=== PATIENT | male | born 1960 | race Caucasian/White ===

== ENCOUNTER 2017-05-22 19:48 | Emergency (ER) | payer SELFPAY ==
[2017-05-22 20:47] LABS: ADD MAN DIFF? NO
[2017-05-22 20:55] LABS: BASO # 0.1 x10^3/uL (0.0-0.2); BASO % 1 % (0-3); EOS # 0.2 x10^3/uL (0.0-0.7); EOS % 2 % (0-3); HEMATOCRIT 46.9 % (39.0-53.0); HEMOGLOBIN 16.3 g/dL (13.0-17.5); LYMPH # 1.3 x10^3/uL (1.0-4.8); LYMPH % 12 % (24-48); MEAN CORPUSCULAR HEMOGLOBIN 30 pg (25-35); MEAN CORPUSCULAR HGB CONC 35 g/dL (31-37); MEAN CORPUSCULAR VOLUME 85 fL (79-100); MONO # 0.6 x10^3/uL (0.0-1.1); MONO % 5 % (0-9); NEUT # 8.5 x10^3uL (1.8-7.7); NEUT % 80 % (31-73); PLATELET COUNT 212 x10^3/uL (140-400); RED BLOOD COUNT 5.52 x10^6/uL (4.30-5.70); WHITE BLOOD COUNT 10.6 x10^3/uL (4.0-11.0)
[2017-05-22 21:00] LABS: ANION GAP 8 (6-14); BLOOD UREA NITROGEN 16 mg/dL (8-26); BUN/CREATININE RATIO 18 (6-20); CALCIUM 9.2 mg/dL (8.5-10.1); CARBON DIOXIDE 26 mmol/L (21-32); CHLORIDE 99 mmol/L (98-107); CREATININE 0.9 mg/dL (0.7-1.3); GLUCOSE 314 mg/dL (70-99); POTASSIUM 3.9 mmol/L (3.5-5.1); SODIUM 133 mmol/L (136-145)
[2017-05-22] MEDS: KETOROLAC 30 MG/ML INJ. IV (21:03)
[2017-05-22 21:06] LABS: ALBUMIN 3.9 g/dL (3.4-5.0); ALK PHOS 135 U/L (46-116); ALT (SGPT) 30 U/L (16-63); AST (SGOT) 15 U/L (15-37); LIPASE 206 U/L (73-393); TOTAL BILIRUBIN 0.4 mg/dL (0.2-1.0)
[2017-05-22 21:13] LABS: BILIRUBIN,URINE NEGATIVE (NEG); CLARITY,URINE CLOUDY; COLOR,URINE YELLOW; GLUCOSE,URINE >=1000 mg/dL (NEG); NITRITE,URINE NEGATIVE (NEG); PROTEIN,URINE NEGATIVE (NEG-TRACE); UROBILINOGEN,URINE 0.2 mg/dL (0.2 mg/dL)
[2017-05-22 21:23] LABS: BACTERIA,URINE 0 /HPF (0-FEW); RBC,URINE RARE /HPF (0-2); SQUAMOUS EPITHELIAL CELL,UR OCC /LPF; WBC,URINE RARE /HPF (0-4)
[2017-05-22] MEDS: HYDROcodone/APAP 5/325MG 1 TAB TABLET PO (22:29)
== END 2017-05-22 22:33 | disposition home or self-care (01) ==
LOC: ER 19:48
DX: S29.012A Strain of muscle and tendon of back wall of thorax, initial encounter (principal); R73.9 Hyperglycemia, unspecified; Z90.49 Acquired absence of other specified parts of digestive tract; Z93.3 Colostomy status; Z88.1 Allergy status to other antibiotic agents; Z91.041 Radiographic dye allergy status; X58.XXXA Exposure to other specified factors, initial encounter; Y93.89 Activity, other specified; Y92.89 Other specified places as the place of occurrence of the external cause; Y99.8 Other external cause status
CPT/HCPCS: 36415; 74176; 80053; 81001; 83690; 85025; 96374; 99285-25; J1885

== ENCOUNTER 2017-05-23 15:00 | Emergency (ER) | payer SELFPAY ==
[2017-05-23 16:01] LABS: ADD MAN DIFF? NO
[2017-05-23 16:03] LABS: BASO # 0.1 x10^3/uL (0.0-0.2); BASO % 1 % (0-3); EOS # 0.2 x10^3/uL (0.0-0.7); EOS % 2 % (0-3); HEMATOCRIT 44.2 % (39.0-53.0); HEMOGLOBIN 15.7 g/dL (13.0-17.5); LYMPH # 1.1 x10^3/uL (1.0-4.8); LYMPH % 12 % (24-48); MEAN CORPUSCULAR HEMOGLOBIN 30 pg (25-35); MEAN CORPUSCULAR HGB CONC 36 g/dL (31-37); MEAN CORPUSCULAR VOLUME 85 fL (79-100); MONO # 0.7 x10^3/uL (0.0-1.1); MONO % 8 % (0-9); NEUT # 6.6 x10^3uL (1.8-7.7); NEUT % 77 % (31-73); PLATELET COUNT 179 x10^3/uL (140-400); RED CELL DISTRIBUTION WIDTH 12.7 % (11.5-14.5); WHITE BLOOD COUNT 8.6 x10^3/uL (4.0-11.0)
[2017-05-23] MEDS: IV NORMAL SALINE 500ML BAG 500 ML IV (16:04)
[2017-05-23] MEDS: fentaNYL PF VIAL 100 MCG/2 ML VIAL IV ×2 (16:04→18:13)
[2017-05-23] MEDS: ONDANSETRON PF 4 MG/2 ML VIAL. IV (16:04)
[2017-05-23 16:12] LABS: ANION GAP 9 (6-14); BLOOD UREA NITROGEN 15 mg/dL (8-26); BUN/CREATININE RATIO 19 (6-20); CALCIUM 9.6 mg/dL (8.5-10.1); CARBON DIOXIDE 25 mmol/L (21-32); CHLORIDE 99 mmol/L (98-107); CREATININE 0.8 mg/dL (0.7-1.3); GFR 99.6; GLUCOSE 311 mg/dL (70-99); POTASSIUM 4.2 mmol/L (3.5-5.1); SODIUM 133 mmol/L (136-145)
[2017-05-23 16:18] LABS: D-DIMER 0.36 ug/mlFEU (0.00-0.50)
[2017-05-23 16:18] LABS: ALBUMIN 3.7 g/dL (3.4-5.0); ALBUMIN/GLOBULIN RATIO 0.9 (1.0-1.7); ALK PHOS 111 U/L (46-116); ALT (SGPT) 26 U/L (16-63); AST (SGOT) 16 U/L (15-37); LIPASE 81 U/L (73-393); TOTAL BILIRUBIN 0.8 mg/dL (0.2-1.0); TOTAL PROTEIN 7.8 g/dL (6.4-8.2)
[2017-05-23] MEDS ORDERED: fentaNYL PF VIAL 100 MCG/2 ML VIAL IV (18:45)
== END 2017-05-23 18:41 | disposition home or self-care (01) ==
LOC: ER 15:00
DX: K80.20 Calculus of gallbladder without cholecystitis without obstruction (principal); Z90.49 Acquired absence of other specified parts of digestive tract; Z93.3 Colostomy status; Z88.1 Allergy status to other antibiotic agents; Z91.041 Radiographic dye allergy status
CPT/HCPCS: 36415; 71045; 76705; 80053; 83690; 85025; 85379; 96361; 96374; 96375; 96376; 99285-25; J2405; J3010; J7040

== ENCOUNTER 2017-11-26 18:04 | Emergency (ER) | payer SELFPAY ==
[~2017-11-26] VITALS: Ht 162.6 cm; Wt 81.2 kg
[~2017-11-26 18:04] MED LIST: HYDR-971 PO
[2017-11-26 18:48] LABS: BASO # 0.1 x10^3/uL (0.0-0.2); BASO % 1 % (0-3); EOS # 0.2 x10^3/uL (0.0-0.7); EOS % 2 % (0-3); HEMOGLOBIN 15.1 g/dL (13.0-17.5); LYMPH # 1.7 x10^3/uL (1.0-4.8); LYMPH % 14 % (24-48); MEAN CORPUSCULAR HEMOGLOBIN 30 pg (25-35); MEAN CORPUSCULAR HGB CONC 35 g/dL (31-37); MEAN CORPUSCULAR VOLUME 85 fL (79-100); MONO % 9 % (0-9); NEUT # 8.7 x10^3uL (1.8-7.7); NEUT % 74 % (31-73); PLATELET COUNT 211 x10^3/uL (140-400); RED BLOOD COUNT 5.06 x10^6/uL (4.30-5.70); RED CELL DISTRIBUTION WIDTH 12.9 % (11.5-14.5); WHITE BLOOD COUNT 11.8 x10^3/uL (4.0-11.0)
[2017-11-26 18:50] LABS: BILIRUBIN,URINE NEGATIVE (NEG); CLARITY,URINE CLEAR; COLOR,URINE YELLOW; NITRITE,URINE NEGATIVE (NEG); PROTEIN,URINE NEGATIVE (NEG-TRACE)
[2017-11-26] MEDS: IV NORMAL SALINE 1000ML BAG 1,000 ML IV ONE (18:51)
[2017-11-26] MEDS: fentaNYL PF VIAL 100 MCG/2 ML VIAL IV ONE ×2 (18:52→20:43)
[2017-11-26 18:59] LABS: CALCIUM 9.3 mg/dL (8.5-10.1); CREATININE 0.8 mg/dL (0.7-1.3); GFR 99.3; POTASSIUM 3.9 mmol/L (3.5-5.1)
--- NOTE | 2017-11-26 19:00 | PHYS DOC ---
Past Medical History Past Medical History: Diverticulitis, Gallstones, Other Additional Past Medical Histor: HERNIA,BORDER LINE DIABETIC Past Surgical History: Appendectomy, Other Additional Past Surgical Histo: HX COLOSTOMY, ABD SX WITH INTESTINES REMOVED Alcohol Use: None Drug Use: None Adult General Chief Complaint Chief Complaint: FLANK PAIN HPI HPI Patient is a 57 year old male presenting with right upper quadrant pain and right mid back pain for the last 2 days it is worse after eating potato with sour cream. It comes and goes but it is worse when he tries to eat. It is not exertional it sometimes hurts worse when he takes a deep breath he had the identical pain back in May when he was diagnosed with gallstones from this emergency room and at that time he did have a negative d-dimer. No shortness breath no fever nausea no vomiting no diarrhea. Review of Systems Review of Systems Constitutional: Denies fever or chills [] Eyes: Denies change in visual acuity, redness, or eye pain [] HENT: Denies nasal congestion or sore throat [] Respiratory: Denies cough or shortness of breath [] Cardiovascular: No additional information not addressed in HPI [] GI: All other systems were reviewed and found to be within normal limits, except as documented in this note. Current Medications Current Medications Current Medications Medications (Trade) Dose Ordered Sig/Autumn Start Time Stop Time Status Last Admin Dose Admin Acetaminophen/ Hydrocodone Bitart (Lortab 5/325) 2 tab 1X ONCE 11/26/17 22:00 11/26/17 22:00 DC 11/26/17 21:52 2 TAB Fentanyl Citrate (Fentanyl 2ml Vial) 50 mcg 1X ONCE 11/26/17 20:30 11/26/17 20:31 DC 11/26/17 20:43 50 MCG Sodium Chloride 1,000 ml @ 1,000 mls/hr 1X ONCE 11/26/17 18:45 11/26/17 19:44 DC 11/26/17 18:51 1,000 MLS/HR Allergies Allergies Allergies Coded Allergies Type Severity Reaction Last Updated Verified levofloxacin Allergy Intermediate HIVES 05/22/17 Yes Iodine and Iodide Containing Produc Adverse Reaction Mild N/V 05/22/17 Yes Physical Exam Physical Exam Constitutional: Well developed, well nourished, no acute distress, non-toxic appearance. [] HENT: Normocephalic, atraumatic, bilateral external ears normal, oropharynx moist, no oral exudates, nose normal. [] Eyes: PERRLA, EOMI, conjunctiva normal, no discharge. [] Neck: Normal range of motion, no tenderness, supple, no stridor. [] Cardiovascular:Heart rate regular rhythm, no murmur [] Lungs & Thorax: Bilateral breath sounds clear to auscultation [] chest wall ttp noted right upper back Abdomen: Bowel sounds normal, soft, ruq with murphys tenderness, no masses, no pulsatile masses. [] Skin: Warm, dry, no erythema, no rash. [] Back: No tenderness, no CVA tenderness. [] Extremities: No tenderness, no cyanosis, no clubbing, ROM intact, no edema. [] Neurologic: Alert and oriented X 3, normal motor function, normal sensory function, no focal deficits noted. [] Psychologic: Affect normal, judgement normal, mood normal. [] Current Patient Data Vital Signs Vital Signs Date Time Temp Pulse Resp B/P (MAP) Pulse Ox O2 Delivery O2 Flow Rate FiO2 11/26/17 21:30 92 133/68 (89) 94 Room Air 11/26/17 18:17 97.8 20 97.8 Lab Values Laboratory Tests Test 11/26/17 18:30 11/26/17 18:32 Urine Collection Type Clean catch Urine Color Yellow Urine Clarity Clear Urine pH 6.0 Urine Specific [place] >=1.030 Urine Protein Negative mg/dL (NEG-TRACE) Urine Glucose (UA) >=1000 mg/dL (NEG) Urine Ketones (Stick) Trace mg/dL (NEG) Urine Blood Negative (NEG) Urine Nitrite Negative (NEG) Urine Bilirubin Negative (NEG) Urine Urobilinogen Dipstick 1.0 mg/dL (0.2 mg/dL) Urine Leukocyte Esterase Negative (NEG) Urine RBC 0 /HPF (0-2) Urine WBC 0 /HPF (0-4) Urine Bacteria 0 /HPF (0-FEW) White Blood Count 11.8 x10^3/uL (4.0-11.0) H Red Blood Count 5.06 x10^6/uL (4.30-5.70) Hemoglobin 15.1 g/dL (13.0-17.5) Hematocrit 43.0 % (39.0-53.0) Mean Corpuscular Volume 85 fL (79-100) Mean Corpuscular Hemoglobin 30 pg (25-35) Mean Corpuscular Hemoglobin Concent 35 g/dL (31-37) Red Cell Distribution Width 12.9 % (11.5-14.5) Platelet Count 211 x10^3/uL (140-400) Neutrophils (%) (Auto) 74 % (31-73) H Lymphocytes (%) (Auto) 14 % (24-48) L Monocytes (%) (Auto) 9 % (0-9) Eosinophils (%) (Auto) 2 % (0-3) Basophils (%) (Auto) 1 % (0-3) Neutrophils # (Auto) 8.7 x10^3uL (1.8-7.7) H Lymphocytes # (Auto) 1.7 x10^3/uL (1.0-4.8) Monocytes # (Auto) 1.0 x10^3/uL (0.0-1.1) Eosinophils # (Auto) 0.2 x10^3/uL (0.0-0.7) Basophils # (Auto) 0.1 x10^3/uL (0.0-0.2) Sodium Level 139 mmol/L (136-145) Potassium Level 3.9 mmol/L (3.5-5.1) Chloride Level 101 mmol/L (98-107) Carbon Dioxide Level 24 mmol/L (21-32) Anion Gap 14 (6-14) Blood Urea Nitrogen 12 mg/dL (8-26) Creatinine 0.8 mg/dL (0.7-1.3) Estimated GFR (Cockcroft-Gault) 99.3 BUN/Creatinine Ratio 15 (6-20) Glucose Level 243 mg/dL (70-99) H Calcium Level 9.3 mg/dL (8.5-10.1) Total Bilirubin 0.7 mg/dL (0.2-1.0) Aspartate Amino Transferase (AST) 10 U/L (15-37) L Alanine Aminotransferase (ALT) 20 U/L (16-63) Alkaline Phosphatase 113 U/L (46-116) Troponin I Quantitative < 0.017 ng/mL (0.000-0.055) Total Protein 8.1 g/dL (6.4-8.2) Albumin 3.7 g/dL (3.4-5.0) Albumin/Globulin Ratio 0.8 (1.0-1.7) L Lipase 81 U/L (73-393) Laboratory Tests 11/26/17 18:32 Laboratory Tests 11/26/17 18:32 EKG EKG [] Interpretation Time: EKG shows normal sinus rhythm with a rate of 91 QTc 442 no obvious acute ischemic changes noted interpreted by me the time of encounter. Radiology/Procedures Radiology/Procedures [] Impressions: pulmonary fibrosis no acute changes Course & Med Decision Making Course & Med Decision Making Pertinent Labs and Imaging studies reviewed. (See chart for details) []biliary v. less likely acs trop/ekg negative. already had negatvie ddimer in may with identical symptoms and this seems more a/w eating and no hypoxia, will defer unnecessary testing at this tiem. IMPRESSION: 1. Moderate hepatomegaly with hepatic steatosis. 2. Cholelithiasis without imaging evidence of acute cholecystitis. Clinically correlate. 3. Stable dilation of CBD measuring 7 mm. Electronically signed by: Tee Reilly DO (11/26/2017 9:14 PM) [facility] DICTATED and SIGNED BY: TEE REILLY DO DATE: 11/26/172109 Noted the above findings. I reevaluated the patient he no longer has right upper quadrant tenderness he says he feels better he does request the same medicines he got last time he had biliary colic Bentyl and [facility]. I did give him a prescription for these and advised follow-up with his surgeon in the next several days for reevaluation. We talked about return precautions to the emergency room including fever or vomiting or worsening pain he noted agreement. Dragon Disclaimer Dragon Disclaimer This electronic medical record was generated, in whole or in part, using a voice recognition dictation system. Departure Departure Impression: Primary Impression: Biliary colic Disposition: 01 HOME, SELF-CARE Condition: STABLE Referrals: NADINE SHARMA MD (PCP) Scripts Dicyclomine Hcl (DICYCLOMINE HCL) 20 Mg Tablet 1 TAB PO TID PRN for PAIN, #30 TAB 1 Refill Prov: SADIA GOMEZ MD 11/26/17 Hydrocodone/Apap 5-325 (NORCO 5-325 TABLET) 1 Each Tablet 1-2 EACH PO PRN Q6HRS PRN for PAIN, #15 as needed for pain Prov: SADIA GOMEZ MD 11/26/17 SADIA GOMEZ MD Nov 26, 2017 19:00
[2017-11-26 19:04] LABS: ALBUMIN 3.7 g/dL (3.4-5.0); ALBUMIN/GLOBULIN RATIO 0.8 (1.0-1.7); TOTAL BILIRUBIN 0.7 mg/dL (0.2-1.0); TOTAL PROTEIN 8.1 g/dL (6.4-8.2)
[2017-11-26 19:15] LABS: BACTERIA,URINE 0 /HPF (0-FEW); RBC,URINE 0 /HPF (0-2); WBC,URINE 0 /HPF (0-4)
--- NOTE | 2017-11-26 21:17 | RAD ---
Indication:RUQ PAIN, BACK PAIN, KNOWN GALLSTONES TECHNIQUE: Grayscale, color Doppler and spectral waveform is of the abdomen obtained. COMPARISON: Previous study from 05/23/2017 FINDINGS: Pancreas is not visualized due to overlying bowel gas. IVC not well visualized. Main portal vein is patent with hepatopedal flow. Hepatic veins are patent. The liver is mildly enlarged measuring 21 cm in longest dimension with diffusely increased echogenicity and decreased through transmission. CBD is dilated measuring 7 mm, previously 9 mm. The right kidney measures 14 cm in length and is mildly enlarged without hydronephrosis. Gallstones noted. No gallbladder wall thickening. No pericholecystic fluid. Hypoechoic areas adjacent to the gallbladder most likely is of focal fatty sparing. Positive sonographic Carreno's sign. IMPRESSION: 1. Moderate hepatomegaly with hepatic steatosis. 2. Cholelithiasis without imaging evidence of acute cholecystitis. Clinically correlate. 3. Stable dilation of CBD measuring 7 mm. Electronically signed by: Tee Connor DO (11/26/2017 9:14 PM) [facility]
[2017-11-26 21:30] VITALS: BP 133/68
[2017-11-26] MEDS ORDERED: DICY20TA3 PO (21:47)
[2017-11-26] MEDS ORDERED: HYDR-971 PO (21:47)
[2017-11-26] MEDS: HYDROcodone/APAP 5/325MG 1 TAB TABLET PO ONE (21:52)
--- NOTE | 2017-11-27 06:13 | EKG ---
[facility] [address] [place] [address] Test Date: 2017-11-26 Test Time: 19:02:37 Pat Name: GODFREY MCWILLIAMS Department: Room: Gender: M Automotive Light Mechanic: DANTE : 1960 Requested By: SADIA GOMEZ Order Number: [id number] Reading MD: Liu Mullins MD Measurements Intervals [place] Rate: 91 P: 47 [place]: 178 QRS: 14 QRSD: 96 T: 30 QT: 358 QTc: 442 Interpretive Statements SINUS RHYTHM Electronically Signed On 11-27-2017 12:25:37 CDT by Liu Mullins MD
--- NOTE | 2017-11-27 08:48 | RAD ---
Chest radiograph 11/26/2017 6:53 PM INDICATION: Right upper quadrant pain COMPARISON: May 23, 2017 TECHNIQUE: Portable upright frontal view of the chest is provided. FINDINGS: The cardiomediastinal silhouette is within normal limits. There are no pleural effusions. There is no pulmonary vascular congestion. There is no pneumothorax. Subpleural reticular interstitial changes are identified with stable nodular opacities in the right lower lobe. There may be more confluent interstitial airspace disease in the peripheral right lower lobe. No significant osseous abnormality is identified. IMPRESSION: More confluent interstitial changes are noted in the right lower lobe which may represent superimposed infiltrate on chronic interstitial lung disease. Electronically signed by: Eden Stokes MD (11/27/2017 8:44 AM) [id number]
== END 2017-11-26 21:53 | disposition home or self-care (01) ==
LOC: ER 18:04
DX: K80.70 Calculus of gallbladder and bile duct without cholecystitis without obstruction (principal); M54.6 Pain in thoracic spine; Z90.89 Acquired absence of other organs; Z93.3 Colostomy status; Z88.1 Allergy status to other antibiotic agents; Z91.041 Radiographic dye allergy status
CPT/HCPCS: 36415; 71045; 76705; 80053; 81001; 83690; 84484; 85025; 93005; 96374; 99285; J3010; J7030

== ENCOUNTER 2018-06-05 11:59 | Emergency (ER) | payer SELFPAY ==
[~2018-06-05] VITALS: Ht 177.8 cm; Wt 81.2 kg
[~2018-06-05 11:59] MED LIST changes: +DICY20TA3 PO; +HYDR-3164 PO; -HYDR-971 PO
[2018-06-05 12:58] LABS: BILIRUBIN,URINE NEGATIVE (NEG); CLARITY,URINE CLOUDY; COLOR,URINE YELLOW; NITRITE,URINE NEGATIVE (NEG); PH,URINE 6.5; PROTEIN,URINE NEGATIVE (NEG-TRACE); UROBILINOGEN,URINE 0.2 mg/dL (0.2 mg/dL)
[2018-06-05 13:13] LABS: BACTERIA,URINE 0 /HPF (0-FEW); RBC,URINE OCC /HPF (0-2); WBC,URINE OCC /HPF (0-4)
[2018-06-05] MEDS ORDERED: fentaNYL PF VIAL 100 MCG/2 ML VIAL IV ONE (13:30)
[2018-06-05] MEDS ORDERED: IV NORMAL SALINE 1000ML BAG 1,000 ML IV ONE (13:30)
[2018-06-05] MEDS ORDERED: LIDOCAINE (700MG/PATCH) PATCH. TD ONE (13:45)
--- NOTE | 2018-06-05 13:47 | RAD ---
CHEST PA LATERAL History: Right chest pain, mid back pain Comparison: November 26, 2017 Findings: 2 views of the chest are submitted. There is again coarse interstitial opacity greatest of the mid to inferior hemithoraces right greater than left, overall fairly similar compared with the November exam although somewhat more apparent at the lung bases comparing with the May 2017 exam. There is no pleural fluid or pneumothorax. Heart size is within normal limits. Impression: 1. There is again coarse interstitial opacity bilaterally right greater than left likely interstitial lung disease, findings somewhat greater at the lung bases compared with May 2017 exam. Electronically signed by: Joe Espinoza MD (06/05/2018 1:44 PM) [facility]
[2018-06-05 13:51] LABS: BASO # 0.1 x10^3/uL (0.0-0.2); BASO % 1 % (0-3); EOS # 0.2 x10^3/uL (0.0-0.7); EOS % 2 % (0-3); HEMATOCRIT 46.4 % (39.0-53.0); HEMOGLOBIN 15.9 g/dL (13.0-17.5); LYMPH # 1.2 x10^3/uL (1.0-4.8); LYMPH % 14 % (24-48); MEAN CORPUSCULAR HEMOGLOBIN 29 pg (25-35); MEAN CORPUSCULAR HGB CONC 34 g/dL (31-37); MEAN CORPUSCULAR VOLUME 85 fL (79-100); MONO # 0.3 x10^3/uL (0.0-1.1); MONO % 4 % (0-9); NEUT # 6.9 x10^3uL (1.8-7.7); NEUT % 79 % (31-73); PLATELET COUNT 232 x10^3/uL (140-400); RED BLOOD COUNT 5.46 x10^6/uL (4.30-5.70); WHITE BLOOD COUNT 8.7 x10^3/uL (4.0-11.0)
[2018-06-05 14:06] LABS: CALCIUM 9.7 mg/dL (8.5-10.1); CREATININE 0.9 mg/dL (0.7-1.3); GFR 86.7; POTASSIUM 4.3 mmol/L (3.5-5.1)
[2018-06-05 14:18] LABS: ALBUMIN 4.2 g/dL (3.4-5.0); MAGNESIUM 1.5 mg/dL (1.8-2.4); TOTAL BILIRUBIN 0.5 mg/dL (0.2-1.0); TOTAL PROTEIN 8.3 g/dL (6.4-8.2)
[2018-06-05] MEDS ORDERED: MORPHINE SULFATE 4 MG/ML VIAL. IV ONE (15:00)
--- NOTE | 2018-06-05 15:03 | PHYS DOC ---
Past Medical History Past Medical History: Diverticulitis, Gallstones, Other Additional Past Medical Histor: HERNIA,BORDER LINE DIABETIC Past Surgical History: Appendectomy, Other Additional Past Surgical Histo: HX COLOSTOMY, ABD SX WITH INTESTINES REMOVED Alcohol Use: None Drug Use: None Adult General Chief Complaint Chief Complaint: FLANK PAIN HPI HPI 57-year-old male presents to ER via POV for complaints of right mid back pain which radiates into right upper abdomen. Patient states pain started around 6 AM this morning and he has had past history of gallstone issues. He reports this does feel similar to previous attacks. Patient states he did go off his regular diet and had queso dip last night along with coffee this morning which he reports those types of food does cause gallstone exacerbations. Patient reports he has had intermittent nausea with dry heaves denies active vomiting or diarrhea. Patient states he took Tylenol this morning around 6 AM with no relief in symptoms. Patient states he had regular bowel movement this morning. Patient denies urinary symptoms. He denies any recent falls or injury. He reports he has had increased nonproductive cough over the past few days. Patient denies any chest pain or palpitations. He reports he does not feel short of air. Review of Systems Review of Systems Constitutional: Denies fever or chills [] Eyes: Denies change in visual acuity, redness, or eye pain [] HENT: Denies nasal congestion or sore throat [] Respiratory: Denies shortness of breath. Reports nonprod. cough Cardiovascular: Denies CP GI: Denies bloody stools or diarrhea. Reports rt lower abd pain with intermittent nausea and dry heaves : Denies dysuria or hematuria [] Musculoskeletal: Denies joint pain. Reports rt flank pain Integument: Denies rash or skin lesions [] Neurologic: Denies headache, focal weakness or sensory changes [] Endocrine: Denies polyuria or polydipsia [] All other systems were reviewed and found to be within normal limits, except as documented in this note. Current Medications Current Medications Current Medications Medications (Trade) Dose Ordered Sig/Autumn Start Time Stop Time Status Last Admin Dose Admin Fentanyl Citrate (Fentanyl 2ml Vial) 50 mcg 1X ONCE 06/05/18 13:30 06/05/18 13:31 DC 06/05/18 13:48 50 MCG Lidocaine (Lidoderm) 1 patch 1X ONCE 06/05/18 13:45 06/05/18 13:47 DC 06/05/18 13:56 1 PATCH Magnesium Oxide (Magnesium Oxide) 400 mg DAILY 06/06/18 09:00 06/06/18 09:00 DC Morphine Sulfate (Morphine Sulfate) 4 mg 1X ONCE 06/05/18 15:00 06/05/18 15:02 DC 06/05/18 15:47 4 MG Sodium Chloride 1,000 ml @ 1,000 mls/hr 1X ONCE 06/05/18 13:30 06/05/18 14:29 DC 06/05/18 13:49 1,000 MLS/HR Allergies Allergies Allergies Coded Allergies Type Severity Reaction Last Updated Verified levofloxacin Allergy Intermediate HIVES 06/09/18 Yes Iodine and Iodide Containing Produc Adverse Reaction Mild N/V 06/09/18 Yes Physical Exam Physical Exam Constitutional: Well developed, well nourished, no acute distress, non-toxic appearance. [] HENT: Normocephalic, atraumatic, bilateral external ears normal, oropharynx moist, no oral exudates, nose normal. [] Eyes: Pupils equal, conjunctiva normal, no discharge. [] Neck: Normal range of motion, no tenderness, supple, no stridor. [] Cardiovascular: Heart rate regular rhythm, no murmur [] Lungs & Thorax: Bilateral breath sounds clear to auscultation- resp. equal/ nonlabored Abdomen: Bowel sounds normal, soft, diffuse tenderness in rt lower abd into lateral side- no rebound tenderness, no masses, no pulsatile masses. [] Skin: Warm, dry, no erythema, no rash. [] Back: Diffuse tenderness in rt lower back with +CVA tenderness Extremities: No tenderness, no cyanosis, no clubbing, ROM intact, no edema. [] Neurologic: Alert and oriented X 3, normal motor function, normal sensory function, no focal deficits noted. [] Psychologic: Affect normal, judgement normal, mood normal. [] Current Patient Data Vital Signs Vital Signs Date Time Temp Pulse Resp B/P (MAP) Pulse Ox O2 Delivery O2 Flow Rate FiO2 06/05/18 16:50 68 149/56 (87) 98 Room Air 06/05/18 13:07 97.7 15 97.7 Lab Values Laboratory Tests Test 06/05/18 12:50 06/05/18 13:05 Urine Collection Type Unknown Urine Color Yellow Urine Clarity Cloudy Urine pH 6.5 Urine Specific [place] 1.025 Urine Protein Negative mg/dL (NEG-TRACE) Urine Glucose (UA) >=1000 mg/dL (NEG) Urine Ketones (Stick) Negative mg/dL (NEG) Urine Blood Negative (NEG) Urine Nitrite Negative (NEG) Urine Bilirubin Negative (NEG) Urine Urobilinogen Dipstick 0.2 mg/dL (0.2 mg/dL) Urine Leukocyte Esterase Negative (NEG) Urine RBC Occ /HPF (0-2) Urine WBC Occ /HPF (0-4) Urine Bacteria 0 /HPF (0-FEW) White Blood Count 8.7 x10^3/uL (4.0-11.0) Red Blood Count 5.46 x10^6/uL (4.30-5.70) Hemoglobin 15.9 g/dL (13.0-17.5) Hematocrit 46.4 % (39.0-53.0) Mean Corpuscular Volume 85 fL (79-100) Mean Corpuscular Hemoglobin 29 pg (25-35) Mean Corpuscular Hemoglobin Concent 34 g/dL (31-37) Red Cell Distribution Width 13.0 % (11.5-14.5) Platelet Count 232 x10^3/uL (140-400) Neutrophils (%) (Auto) 79 % (31-73) H Lymphocytes (%) (Auto) 14 % (24-48) L Monocytes (%) (Auto) 4 % (0-9) Eosinophils (%) (Auto) 2 % (0-3) Basophils (%) (Auto) 1 % (0-3) Neutrophils # (Auto) 6.9 x10^3uL (1.8-7.7) Lymphocytes # (Auto) 1.2 x10^3/uL (1.0-4.8) Monocytes # (Auto) 0.3 x10^3/uL (0.0-1.1) Eosinophils # (Auto) 0.2 x10^3/uL (0.0-0.7) Basophils # (Auto) 0.1 x10^3/uL (0.0-0.2) Sodium Level 136 mmol/L (136-145) Potassium Level 4.3 mmol/L (3.5-5.1) Chloride Level 98 mmol/L (98-107) Carbon Dioxide Level 26 mmol/L (21-32) Anion Gap 12 (6-14) Blood Urea Nitrogen 14 mg/dL (8-26) Creatinine 0.9 mg/dL (0.7-1.3) Estimated GFR (Cockcroft-Gault) 86.7 BUN/Creatinine Ratio 16 (6-20) Glucose Level 267 mg/dL (70-99) H Calcium Level 9.7 mg/dL (8.5-10.1) Magnesium Level 1.5 mg/dL (1.8-2.4) L Total Bilirubin 0.5 mg/dL (0.2-1.0) Aspartate Amino Transferase (AST) 19 U/L (15-37) Alanine Aminotransferase (ALT) 23 U/L (16-63) Alkaline Phosphatase 115 U/L (46-116) Troponin I Quantitative < 0.017 ng/mL (0.000-0.055) Total Protein 8.3 g/dL (6.4-8.2) H Albumin 4.2 g/dL (3.4-5.0) Albumin/Globulin Ratio 1.0 (1.0-1.7) Laboratory Tests 06/05/18 13:05 Laboratory Tests 06/05/18 13:05 EKG EKG EKG obtained 06/05/18 at [address] Archibald Sinus rhythm Rate 73 No STEMI Radiology/Procedures Radiology/Procedures PROCEDURE: LIMITED ABDOMINAL DOPPLER Limited abdomen ultrasound HISTORY: Right upper quadrant abdominal pain and back pain. FINDINGS: Pancreas, aorta and IVC not visualized due to bowel gas shadowing. Several gallstones are present with a dominant oval 2 cm gallstone with shadowing. No gallbladder wall thickening or surrounding edema is present although the patient does have a positive sonographic Carreno sign. Patent hepatopedal portal vein blood flow. Common bile duct diameter borderline enlarged measuring 7 mm proximal but tapers distally to a more normal diameter 5 mm. Increased liver echogenicity likely steatosis. No liver mass documented. Right renal length 11.6 cm, no right renal mass or hydronephrosis documented. Spleen and left kidney not evaluated. IMPRESSION: 1. Cholelithiasis. No inflammatory changes of the gallbladder are evident sonographically however the patient does have a positive sonographic Carreno sign which could indicate early findings of cholecystitis. 2. Borderline dilation of the common bile duct with a diameter 7 mm upper limits of normal. 3. Fatty liver. Electronically signed by: Malik Moraes MD (06/05/2018 4:07 PM) [facility] DICTATED and SIGNED BY: MALIK MORAES MD DATE: 06/05/18 6084 Course & Med Decision Making Course & Med Decision Making Pertinent Labs and Imaging studies reviewed. (See chart for details) 1500: On reevaluation patient reports he had minimal relief and back pain and has had radiation of pain into right upper abdomen. Patient reports his is similar to previous gallstone exacerbations. Will obtain ultrasound of upper abdomen and provide patient with additional dose of pain medicine. He remains nontoxic in appearance. He has had no vomiting episodes while in the ER. Lab results were discussed- WBCs NL at 8.7; UA neg. blood/leuks and LFTs NL. EKG obtained as pt had reported pain radiating into upper abd- no acute ST elevation/STEMI and troponin <0.017. Admission was offered for further care/monitoring with US showing cholelithiasis with no inflammatory changes- pt is not wanting to be admitted at this time reporting he has home issues which won't work out allowing admission. He reports he plans to call Dr. Hanley who has evaluated him in past for GB issues and schedule f/u appt for outpt tx. He requested Rx for Bentyl and [place] for more severe pain if Bentyl doesn't work. Pt has had no active vomiting while in the ER. He remains nontoxic in appearance. Pt verbalized understanding of benefits from admission however following discussion on his ongoing sxs and test results he is requesting home discharge. Education was provided on s&s to return to ER for which he stated if sxs worsen or with concerns he would return to ER for admit. Discharge instructions were discussed. Dragon Disclaimer Dragon Disclaimer This electronic medical record was generated, in whole or in part, using a voice recognition dictation system. Departure Departure Impression: Primary Impression: Biliary colic Additional Impressions: Abdominal pain Back pain Cough Disposition: 01 HOME, SELF-CARE Condition: STABLE Referrals: NADINE SHARMA MD (PCP) MATTI HANLEY MD Patient Instructions: Abdominal Pain, Back Pain, Adult, Biliary Colic, Cough, Adult Additional Instructions: As you chose to be discharged from the hospital instead of admitted for further care- you should call and get Appointment scheduled with Dr. Hanley for further care and evaluation. If symptoms worsen then return to the Emergency Department. As discussed the BRAT diet and drink plenty of water. If taking the [place] you can take stool softeners to avoid constipation. Scripts Dicyclomine Hcl (DICYCLOMINE HCL) 10 Mg Capsule 1 CAP PO PRN Q6HRS PRN for PAIN, #12 CAP 0 Refills Prov: PO HENLEY APRN 06/05/18 Problem Qualifiers PO HENLEY APRN Jun 05, 2018 15:03
--- NOTE | 2018-06-05 16:10 | RAD ---
Limited abdomen ultrasound HISTORY: Right upper quadrant abdominal pain and back pain. FINDINGS: Pancreas, aorta and IVC not visualized due to bowel gas shadowing. Several gallstones are present with a dominant oval 2 cm gallstone with shadowing. No gallbladder wall thickening or surrounding edema is present although the patient does have a positive sonographic Carreno sign. Patent hepatopedal portal vein blood flow. Common bile duct diameter borderline enlarged measuring 7 mm proximal but tapers distally to a more normal diameter 5 mm. Increased liver echogenicity likely steatosis. No liver mass documented. Right renal length 11.6 cm, no right renal mass or hydronephrosis documented. Spleen and left kidney not evaluated. IMPRESSION: 1. Cholelithiasis. No inflammatory changes of the gallbladder are evident sonographically however the patient does have a positive sonographic Carreno sign which could indicate early findings of cholecystitis. 2. Borderline dilation of the common bile duct with a diameter 7 mm upper limits of normal. 3. Fatty liver. Electronically signed by: Jimenez Walden MD (06/05/2018 4:07 PM) [facility]
[2018-06-05] MEDS ORDERED: DICY10CA3 PO (16:45)
[2018-06-05] MEDS ORDERED: HYDR-3164 PO (16:45)
[2018-06-05 16:50] VITALS: BP 149/56
[2018-06-06] MEDS ORDERED: LIDOCAINE (700MG/PATCH) PATCH. TD SCH (09:00)
[2018-06-06] MEDS ORDERED: MAGNESIUM OXIDE 400 MG TABLET PO SCH (09:00)
--- NOTE | 2018-06-07 08:08 | EKG ---
[facility] [address] [place] [address] Test Date: 2018-06-05 Test Time: 13:01:35 Pat Name: GODFREY MCWILLIAMS Department: Room: Gender: M Field Service Rep: : 1960 Requested By: PO HENLEY Order Number: [id number] Reading MD: Liu Mullins MD Measurements Intervals [place] Rate: 73 P: 66 [place]: 186 QRS: 32 QRSD: 98 T: 44 QT: 392 QTc: 435 Interpretive Statements SINUS RHYTHM Electronically Signed On 06-07-2018 10:17:02 CDT by Liu Mullins MD
--- NOTE | 2018-06-07 09:43 | RAD ---
Limited abdomen ultrasound HISTORY: Right upper quadrant abdominal pain and back pain. FINDINGS: Pancreas, aorta and IVC not visualized due to bowel gas shadowing. Several gallstones are present with a dominant oval 2 cm gallstone with shadowing. No gallbladder wall thickening or surrounding edema is present although the patient does have a positive sonographic Carreno sign. Patent hepatopedal portal vein blood flow. Common bile duct diameter borderline enlarged measuring 7 mm proximal but tapers distally to a more normal diameter 5 mm. Increased liver echogenicity likely steatosis. No liver mass documented. Right renal length 11.6 cm, no right renal mass or hydronephrosis documented. Spleen and left kidney not evaluated. IMPRESSION: 1. Cholelithiasis. No inflammatory changes of the gallbladder are evident sonographically however the patient does have a positive sonographic Carreno sign which could indicate early findings of cholecystitis. 2. Borderline dilation of the common bile duct with a diameter 7 mm upper limits of normal. 3. Fatty liver. Electronically signed by: Jimenez Moraes MD (06/05/2018 4:07 PM) [facility] DICTATED and SIGNED BY: JIMENEZ MORAES MD DATE: 06/05/18 1607 MTDD
[2018-06-09] MEDS ORDERED: ACET325T9 PO (03:41)
[2018-06-09] MEDS ORDERED: OMEP20TA63 PO (03:41)
[2018-06-09] MEDS ORDERED: LACT1CAP2 PO (03:41)
[2018-06-09] MEDS ORDERED: DIPH25CA58 PO (03:41)
[2018-06-11] MEDS ORDERED: HYDR-3164 PO (11:52)
[2018-06-11] MEDS ORDERED: DOCU-109 PO (11:53)
== END 2018-06-05 17:07 | disposition home or self-care (01) ==
LOC: ER 11:59
DX: K80.70 Calculus of gallbladder and bile duct without cholecystitis without obstruction (principal); M54.6 Pain in thoracic spine; R05 Cough; K76.0 Fatty (change of) liver, not elsewhere classified; R10.11 Right upper quadrant pain; Z90.89 Acquired absence of other organs; Z93.3 Colostomy status; Z88.1 Allergy status to other antibiotic agents; Z91.041 Radiographic dye allergy status
CPT/HCPCS: 36415; 71046; 76705; 80053; 81001; 83735; 84484; 85025; 93005; 96374; 96375; 99284; J2270; J3010; J7030; 93976

== ENCOUNTER 2019-11-22 16:51 | Emergency (ER) | payer SELFPAY ==
[~2019-11-22] VITALS: Ht 162.6 cm; Wt 75.0 kg
[~2019-11-22 16:51] MED LIST changes: +ACET325T9 PO; +DICY10CA3 PO; +DIPH25CA58 PO; +DOCU-109 PO; +LACT1CAP2 PO; +OMEP20TA63 PO
[2019-11-22] MEDS ORDERED: IV NORMAL SALINE 1000ML BAG 1,000 ML IV ONE (17:45)
--- NOTE | 2019-11-22 17:56 | RAD ---
PORTABLE CHEST 1V Clinical indications: Shortness of air COMPARISON: June 05, 2018. Findings: Chronic interstitial lung disease is seen consistent with pulmonary fibrosis. No new lung infiltrate or pleural effusion or pulmonary edema or lung mass or pneumothorax is seen. The heart size, pulmonary vasculature, mediastinum and both fernando are stable. Impression: Pulmonary fibrosis. No acute radiographic abnormality is seen. Electronically signed by: Grzegorz Coyle MD (11/22/2019 5:53 PM) [id number]
[2019-11-22 18:08] LABS: ALBUMIN/GLOBULIN RATIO 0.9 (1.0-1.7); CALCIUM 9.7 mg/dL (8.5-10.1); CREATININE 0.8 mg/dL (0.7-1.3); GFR 98.6; HEMATOCRIT 48.1 % (39.0-53.0); HEMOGLOBIN 16.6 g/dL (13.0-17.5); MEAN CORPUSCULAR HEMOGLOBIN 30 pg (25-35); MEAN CORPUSCULAR VOLUME 87 fL (79-100); RED BLOOD COUNT 5.55 x10^6/uL (4.30-5.70); TOTAL BILIRUBIN 0.4 mg/dL (0.2-1.0); TOTAL PROTEIN 8.4 g/dL (6.4-8.2); WHITE BLOOD COUNT 8.5 x10^3/uL (4.0-11.0)
[2019-11-22 18:09] LABS: BASO % 1 % (0-3); EOS % 4 % (0-3); MEAN CORPUSCULAR HGB CONC 35 g/dL (31-37); MONO % 8 % (0-9); NEUT % 65 % (31-73); PLATELET COUNT 283 x10^3/uL (140-400); POTASSIUM 4.1 mmol/L (3.5-5.1); RED CELL DISTRIBUTION WIDTH 12.8 % (11.5-14.5)
[2019-11-22 18:10] LABS: BASO # 0.1 x10^3/uL (0.0-0.2); EOS # 0.4 x10^3/uL (0.0-0.7); LYMPH # 1.9 x10^3/uL (1.0-4.8); LYMPH % 22 % (24-48); MONO # 0.7 x10^3/uL (0.0-1.1); NEUT # 5.5 x10^3/uL (1.8-7.7)
[2019-11-22] MEDS ORDERED: FAMOTIDINE 20 MG/2 ML VIAL IVP ONE (18:15)
[2019-11-22] MEDS ORDERED: METOCLOPRAMIDE HCL 10 MG/2 ML VIAL. IVP ONE (18:15)
[2019-11-22 18:25] LABS: BILIRUBIN,URINE NEGATIVE (NEG); CLARITY,URINE CLEAR; COLOR,URINE YELLOW; NITRITE,URINE NEGATIVE (NEG); PROTEIN,URINE NEGATIVE (NEG-TRACE); UROBILINOGEN,URINE 0.2 mg/dL (0.2 mg/dL)
--- NOTE | 2019-11-22 18:33 | PHYS DOC ---
Past Medical History Past Medical History: Diverticulitis, Gallstones, Other Additional Past Medical Histor: HERNIA,BORDER LINE DIABETIC Past Surgical History: Appendectomy, Other Additional Past Surgical Histo: HX COLOSTOMY, ABD SX WITH INTESTINES REMOVED Smoking Status: Former Smoker Alcohol Use: None Drug Use: None General Adult EDM: Chief Complaint: ABDOMINAL PAIN HPI: HPI: Patient is a 59 year old male who presents with 5 days of epigastric sensation of fullness, shortness of air and productive cough with white phlem. States that shortness of air gets worse when he is up and moving. He states he vomited once this morning. He states that after he vomited to get his stomach to settle he ate some crackers and some 7-Up was fine. He states that this fullness sensation gets better with belching. He does take Prilosec daily. He is a pre vious smoker for 40+ years but stopped in 2010. He denies fever, dizziness, abdominal pain, diarrhea, chest pain, numbness or tingling, headache, vision changes, focal weakness, syncope. Patient has a history of GERD, abdominal hernias, abdominal surgery with a resection because of diverticulitis, borderline diabetes. Review of Systems: Review of Systems: Constitutional: Denies fever or chills. [] Eyes: Denies change in visual acuity. [] HENT: Denies nasal congestion or sore throat. [] Respiratory: Denies cough or shortness of breath. [] Cardiovascular: Denies chest pain or edema. [] GI: Denies abdominal pain, nausea, vomiting, bloody stools or diarrhea. [] : Denies dysuria. [] Musculoskeletal: Denies back pain or joint pain. [] Integument: Denies rash. [] Neurologic: Denies headache, focal weakness or sensory changes. [] Endocrine: Denies polyuria or polydipsia. [] Lymphatic: Denies swollen glands. [] Psychiatric: Denies depression or anxiety. [] Heart Score: HEART Score for Chest Pain: HEART Score for Chest Pain Response (Comments) Value History Slighlty/Non-Suspicious 0 ECG Normal 0 Age >45 - < 65 1 Risk Factors 1 or 2 Risk Factors 1 Troponin < Normal Limit 0 Total 2 Risk Factors: Risk Factors: DM, Current or recent (<one month) smoker, HTN, HLP, family history of CAD, obesity. Risk Scores: Score 0 - 3: 2.5% MACE over next 6 weeks - Discharge Home Score 4 - 6: 20.3% MACE over next 6 weeks - Admit for Clinical Observation Score 7 - 10: 72.7% MACE over next 6 weeks - Early Invasive Strategies Current Medications: Current Medications Medications (Trade) Dose Ordered Sig/Autumn Start Time Stop Time Status Last Admin Dose Admin Famotidine (Pepcid Vial) 20 mg 1X ONCE 11/22/19 18:15 11/22/19 18:16 DC 11/22/19 17:55 20 MG Metoclopramide HCl (Reglan Vial) 10 mg 1X ONCE 11/22/19 18:15 11/22/19 18:16 DC 11/22/19 17:55 10 MG Sodium Chloride 1,000 ml @ 1,000 mls/hr 1X ONCE 11/22/19 17:45 11/22/19 18:44 11/22/19 17:43 1,000 MLS/HR Allergies: Allergies: Allergies Coded Allergies Type Severity Reaction Last Updated Verified levofloxacin Allergy Intermediate HIVES 06/09/18 Yes Iodine and Iodide Containing Produc Adverse Reaction Mild N/V 06/09/18 Yes Physical Exam: PE: Constitutional: Well developed, well nourished, no acute distress, non-toxic appearance. [] HENT: Normocephalic, atraumatic, bilateral external ears normal, oropharynx moist, no oral exudates, nose normal. [] Eyes: PERRLA, EOMI, conjunctiva normal, no discharge. [] Neck: Normal range of motion, no tenderness, supple, no stridor. [] Cardiovascular:Heart rate regular rhythm, no murmur [] Lungs & Thorax: Bilateral breath sounds clear to auscultation [] Abdomen: Bowel sounds normal, soft, no tenderness, no masses, no pulsatile mas ses. [] Skin: Warm, dry, no erythema, no rash. [] Back: No tenderness, no CVA tenderness. [] Extremities: No tenderness, no cyanosis, no clubbing, ROM intact, no edema. [] Neurologic: Alert and oriented X 3, normal motor function, normal sensory function, no focal deficits noted. [] Psychologic: Affect normal, judgement normal, mood normal. [] Current Patient Data: Labs: Laboratory Tests Test 9/8/20 17:30 White Blood Count 8.5 x10^3/uL (4.0-11.0) Red Blood Count 5.55 x10^6/uL (4.30-5.70) Hemoglobin 16.6 g/dL (13.0-17.5) Hematocrit 48.1 % (39.0-53.0) Mean Corpuscular Volume 87 fL (79-100) Mean Corpuscular Hemoglobin 30 pg (25-35) Mean Corpuscular Hemoglobin Concent 35 g/dL (31-37) Red Cell Distribution Width 12.8 % (11.5-14.5) Platelet Count 283 x10^3/uL (140-400) Neutrophils (%) (Auto) 65 % (31-73) Lymphocytes (%) (Auto) 22 % (24-48) L Monocytes (%) (Auto) 8 % (0-9) Eosinophils (%) (Auto) 4 % (0-3) H Basophils (%) (Auto) 1 % (0-3) Neutrophils # (Auto) 5.5 x10^3/uL (1.8-7.7) Lymphocytes # (Auto) 1.9 x10^3/uL (1.0-4.8) Monocytes # (Auto) 0.7 x10^3/uL (0.0-1.1) Eosinophils # (Auto) 0.4 x10^3/uL (0.0-0.7) Basophils # (Auto) 0.1 x10^3/uL (0.0-0.2) Sodium Level 137 mmol/L (136-145) Potassium Level 4.1 mmol/L (3.5-5.1) Chloride Level 100 mmol/L (98-107) Carbon Dioxide Level 26 mmol/L (21-32) Anion Gap 11 (6-14) Blood Urea Nitrogen 16 mg/dL (8-26) Creatinine 0.8 mg/dL (0.7-1.3) Estimated GFR (Cockcroft-Gault) 98.6 BUN/Creatinine Ratio 20 (6-20) Glucose Level 193 mg/dL (70-99) H Calcium Level 9.7 mg/dL (8.5-10.1) Total Bilirubin 0.4 mg/dL (0.2-1.0) Aspartate Amino Transferase (AST) 15 U/L (15-37) Alanine Aminotransferase (ALT) 20 U/L (16-63) Alkaline Phosphatase 112 U/L (46-116) Troponin I Quantitative 0.021 ng/mL (0.000-0.055) Total Protein 8.4 g/dL (6.4-8.2) H Albumin 4.0 g/dL (3.4-5.0) Albumin/Globulin Ratio 0.9 (1.0-1.7) L Lipase 51 U/L (73-393) L Laboratory Tests 11/22/19 17:30 Laboratory Tests 11/22/19 17:30 Vital Signs: Vital Signs Date Time Temp Pulse Resp B/P (MAP) Pulse Ox O2 Delivery O2 Flow Rate FiO2 11/22/19 17:20 98.0 97 20 168/89 (115) 98 Room Air 98.0 EKG: EK and read by Dr. Lopez as sinus rhythm and no STEMI. [] Radiology/Procedures: Radiology/Procedures: [] Impression: [place] [id number] IMAGING REPORT Signed [facility] [id number] : 1960 LOCATION: ER AGE: 59 SEX: M EXAM STATUS: PRE ER ORD. PHYSICIAN: PAM BORREGO APRN REASON: soa PROCEDURE: PORTABLE CHEST 1V PORTABLE CHEST 1V Clinical indications: Shortness of air COMPARISON: June 05, 2018. Findings: Chronic interstitial lung disease is seen consistent with pulmonary fibrosis. No new lung infiltrate or pleural effusion or pulmonary edema or lung mass or pneumothorax is seen. The heart size, pulmonary vasculature, mediastinum and both fernando are stable. Impression: Pulmonary fibrosis. No acute radiographic abnormality is seen. Electronically signed by: Silke oCyle MD (11/22/2019 5:53 PM) [id number] DICTATED and SIGNED BY: SILKE COYLE MD DATE: 11/22/[address] [address] IMAGING REPORT Signed [facility] [id number] : 1960 LOCATION: ER AGE: 59 SEX: M EXAM STATUS: REG ER ORD. PHYSICIAN: PAM BORREGO APRN REASON: abdominal pain, vomiting PROCEDURE: CT ABDOMEN PELVIS WO CONTRAST Exam: CT of abdomen and pelvis without contrast INDICATION: Abdominal pain, vomiting TECHNIQUE: Sequential axial images through the abdomen and pelvis obtained without IV contrast. Sagittal and coronal reformatted images were reconstructed from the axial data and reviewed. Comparisons: 05/22/2017 FINDINGS: Heart size is normal. No pericardial effusion. Bilobed nodule in the left lower lobe measuring 2.3 x 4.0 cm. No pleural effusion. Evaluation of the solid organs is limited secondary to noncontrast technique. Liver, spleen, and anchor are unremarkable. Gallbladder is surgically absent. Mild thickening of the left adrenal gland is noted. No perinephric inflammation or hydronephrosis. Several hypoattenuating lesions are noted in the kidneys bilaterally incompletely characterized on this exam. Bladder is decompressed not well evaluated. Prostate is not enlarged. Postsurgical changes at the sigmoid colon and transverse colon are noted. Remainder of the large and small bowel are unremarkable. No free abdominal air or fluid. No obstruction. Abdominal aorta has a normal course and caliber. No enlarged intra-abdominal lymph nodes are identified. Small fat-containing ventral hernias are noted. No suspicious osseous lesions or acute fractures. IMPRESSION: 1. No acute process identified within the abdomen or pelvis. 2. Bilobed lung nodule at the left lower lobe measuring 2.3 x 4.0 cm. This is new compared to the study in 2018 and highly concerning for malignancy. 3. Several hypoattenuating lesions in the kidneys bilaterally completely characterized on noncontrast exam. Further evaluation with nonemergent/outpatient renal protocol MRI is recommended. 4. Mild thickening of the left adrenal gland which is nonspecific. Exposure: One or more of the following in the visualized dose reduction techniques were utilized for this examination: 1. Automated exposure control 2. Adjustment of the MA and/or KV according to patient size 3. Use of iterative of reconstructive technique Electronically signed by: Ozzie Liu MD (11/22/2019 6:42 PM) [id number] DICTATED and SIGNED BY: OZZIE LIU MD DATE: 11/22/19 184 [facility] [address] [place] [address] IMAGING REPORT Signed PATIENT: GODFREY MCWILLIAMS: [id number] : 1960 LOCATION: ER AGE: 59 SEX: M EXAM STATUS: REG ER ORD. PHYSICIAN: PAM BORREGO APRN REASON: SHORTNESS OF AIR, CHAUNCEY KNOWS PROCEDURE: PULMONARY PERFUSION IMG PARTIC Examination: PULMONARY PERFUSION IMG PARTIC History: Reason: SHORTNESS OF AIR, CHAUNCEY KNOWS / Spl. Instructions: / History: Comparison/Correlation: 11/22/2019 Portable Chest X-ray Exam Findings: 5.5 mCi technetium 99m MAA was intravenously administered for purposes of pulmonary perfusion scintigraphy. Imaging in 8 projections was performed. Multiple small subsegmental perfusion defects are present in particular at the left lung apex. No definite segmental perfusion defect. Impression: Findings are most compatible with low probability for PE. Findings likely relate to underlying interstitial lung disease and pulmonary fibrotic findings seen on prior chest x-ray and most recent exam as well. Evaluation may be limited without ventilation imaging. Electronically signed by: Isreal Moreno MD (11/22/2019 9:38 PM) [facility] DICTATED and SIGNED BY: ISREAL MORNEO MD DATE: 11/22/192137 Course & Med Decision Making: Course & Med Decision Making Pertinent Labs and Imaging studies reviewed. (See chart for details) COVID-19 CRITERIA: The patient was evaluated during the global COVID-19 pandemic, and that diagnosis was suspected/considered upon their initial presentation. Their evaluation, treatment and testing was consistent with current guidelines for patients who present with complaints or symptoms that may be related to COVID-19. See HPI. No extremity swelling. Abdomen soft and nontender. Skin pink warm and dry. Alert and oriented x4. Ambulatory to steady gait. Speaks in full complete sentences. Lungs are clear in upper lobes with diminished in lower lobes. Blood work shows no acute findings. Chest x-ray shows: Impression: Pulmonary fibrosis. No acute radiographic abnormality is seen. CT shows: IMPRESSION: 1. No acute process identified within the abdomen or pelvis. 2. Bilobed lung nodule at the left lower lobe measuring 2.3 x 4.0 cm. This is new compared to the study in 2018 and highly concerning for malignancy. 3. Several hypoattenuating lesions in the kidneys bilaterally completely characterized on noncontrast exam. Further evaluation with nonemergent/outpatient renal protocol MRI is recommended. 4. Mild thickening of the left adrenal gland which is nonspecific. Dr Amezquita has spoken to the patient. Patient does not want to stay in the hospital. Patient to follow-up with pulmonary as soon as possible. [] Dragon Disclaimer: Dragon Disclaimer: This electronic medical record was generated, in whole or in part, using a voice recognition dictation system. COVID-19 Patient Risks: Age 65 or older: No Sign of co-morbidity: Yes Exp to person + for COVID: No Exp to PUI: No Travel from affected area: No Lower respiratory symptoms: Yes Fever: No Other: No PPE Use: Full PPE with N95 mask or PAPR: Yes Departure Departure Impression: Primary Impression: Cough Additional Impressions: Shortness of breath Abnormal CT scan Disposition: 01 HOME, SELF-CARE Condition: STABLE Referrals: NADINE SHARMA MD (PCP) ANNETTE MARCANO MD Patient Instructions: Incidental Abnormal Radiological Finding Additional Instructions: Follow-up with pulmonary as soon as possible. Drink plenty of fluids. Scripts Albuterol Sulfate (Proair Hfa) 8.5 Gm Hfa.aer.ad 1 PUFF INH PRN Q6HRS PRN for SHORTNESS OF BREATH, #1 INHALER Prov: PAM BORREGO APRN 11/22/19 Methylprednisolone (MEDROL) 4 Mg Tab.ds.pk 1 PKG PO UD, #1 PKG Prov: PAM BORREGO APRN 11/22/19 Justicifation of Admission Dx: Justifications for Admission: Justification of Admission Dx: N/A PAM BORREGO APRN Nov 22, 2019 18:32
[2019-11-22 18:44] LABS: BACTERIA,URINE FEW /HPF (0-FEW); SQUAMOUS EPITHELIAL CELL,UR OCC /LPF
--- NOTE | 2019-11-22 18:45 | RAD ---
Exam: CT of abdomen and pelvis without contrast INDICATION: Abdominal pain, vomiting TECHNIQUE: Sequential axial images through the abdomen and pelvis obtained without IV contrast. Sagittal and coronal reformatted images were reconstructed from the axial data and reviewed. Comparisons: 05/22/2017 FINDINGS: Heart size is normal. No pericardial effusion. Bilobed nodule in the left lower lobe measuring 2.3 x 4.0 cm. No pleural effusion. Evaluation of the solid organs is limited secondary to noncontrast technique. Liver, spleen, and anchor are unremarkable. Gallbladder is surgically absent. Mild thickening of the left adrenal gland is noted. No perinephric inflammation or hydronephrosis. Several hypoattenuating lesions are noted in the kidneys bilaterally incompletely characterized on this exam. Bladder is decompressed not well evaluated. Prostate is not enlarged. Postsurgical changes at the sigmoid colon and transverse colon are noted. Remainder of the large and small bowel are unremarkable. No free abdominal air or fluid. No obstruction. Abdominal aorta has a normal course and caliber. No enlarged intra-abdominal lymph nodes are identified. Small fat-containing ventral hernias are noted. No suspicious osseous lesions or acute fractures. IMPRESSION: 1. No acute process identified within the abdomen or pelvis. 2. Bilobed lung nodule at the left lower lobe measuring 2.3 x 4.0 cm. This is new compared to the study in 2018 and highly concerning for malignancy. 3. Several hypoattenuating lesions in the kidneys bilaterally completely characterized on noncontrast exam. Further evaluation with nonemergent/outpatient renal protocol MRI is recommended. 4. Mild thickening of the left adrenal gland which is nonspecific. Exposure: One or more of the following in the visualized dose reduction techniques were utilized for this examination: 1. Automated exposure control 2. Adjustment of the MA and/or KV according to patient size 3. Use of iterative of reconstructive technique Electronically signed by: Ozzie Hernandez MD (11/22/2019 6:42 PM) [id number]
[2019-11-22 19:21] LABS: PROTHROMBIN TIME PATIENT 13.3 SEC (11.7-14.0)
[2019-11-22] MEDS ORDERED: METH4TAB2 PO (19:56)
[2019-11-22] MEDS ORDERED: ALBU2.5V8 INH (19:56)
--- NOTE | 2019-11-22 21:41 | RAD ---
Examination: PULMONARY PERFUSION IMG PARTIC History: Reason: SHORTNESS OF AIR, CHAUNCEY KNOWS / Spl. Instructions: / History: Comparison/Correlation: 11/22/2019 Portable Chest X-ray Exam Findings: 5.5 mCi technetium 99m MAA was intravenously administered for purposes of pulmonary perfusion scintigraphy. Imaging in 8 projections was performed. Multiple small subsegmental perfusion defects are present in particular at the left lung apex. No definite segmental perfusion defect. Impression: Findings are most compatible with low probability for PE. Findings likely relate to underlying interstitial lung disease and pulmonary fibrotic findings seen on prior chest x-ray and most recent exam as well. Evaluation may be limited without ventilation imaging. Electronically signed by: Isreal Menchaca MD (11/22/2019 9:38 PM) [id number]
[2019-11-22 21:52] VITALS: BP 166/85
--- NOTE | 2019-11-23 04:09 | EKG ---
[facility] [address] [place] [address] Test Date: 2019-11-22 Test Time: 17:23:58 Pat Name: GODFREY MCWILLIAMS Department: Room: Gender: M [employer] Vegetable: : 1960 Requested By: PAM BORREGO Order Number: [id number] Reading MD: Measurements Intervals [place] Rate: 92 P: 39 MI: 174 QRS: 24 QRSD: 98 T: 28 QT: 352 QTc: 440 Interpretive Statements SINUS RHYTHM NORMAL ECG RI6.02 No previous ECG available for comparison
--- NOTE | 2019-11-24 10:44 | NUR ---
IP: Informed pt of negative COVID results. Pt verbalized understanding.
== END 2019-11-22 22:06 | disposition home or self-care (01) ==
LOC: ER 16:51
DX: R05 Cough (principal); R06.02 Shortness of breath; Z20.828 Contact with and (suspected) exposure to other viral communicable diseases; R10.13 Epigastric pain; R11.2 Nausea with vomiting, unspecified; R94.8 Abnormal results of function studies of other organs and systems; Z87.442 Personal history of urinary calculi; Z90.89 Acquired absence of other organs; Z98.890 Other specified postprocedural states; Z87.891 Personal history of nicotine dependence; Z88.1 Allergy status to other antibiotic agents; Z91.041 Radiographic dye allergy status
CPT/HCPCS: 36415; 71045; 74176; 78580; 80053; 81001; 83690; 84484; 85025; 85610; 87070; 87880; 93005; 96361; 96374; 96375; 99285; A9540; J2765; J3490; J7030; U0003

== ENCOUNTER → 2019-12-05 | Outpatient (CLI) | payer SELFPAY ==
[2019-11-22 21:52] VITALS: BP 166/85
[~2019-12-05] MED LIST changes: +ALBU2.5V8 INH; +METH4TAB2 PO
--- NOTE | 2019-12-05 13:14 | RAD ---
Noncontrast CT scan of the chest compared to chest x-ray dated every 2023 lung mass. TECHNIQUE: Contiguous axial CT images are obtained through the chest. Sagittal and coronal reformations are evaluated. FINDINGS: Extensive changes of COPD the apices, with extensive bibasilar honeycombing consistent with UIP. There is a densely calcified granuloma in the left lower lobe. There is an irregular spiculated ovoid mass in the left lower lung seen best on series 2 axial image #46 which measures 4.2 x 2.3 cm x 2.0 transversely, AP, and craniocaudally. This is highly suspicious for primary neoplasm. In the medial right lower lung there is a smoothly marginated 8 mm noncalcified nodule which is indeterminate. This is seen on series 2 axial image #30. There are changes of antecedent granulomatous disease with densely calcified subcarinal and left hilar adenopathy. There is 1.7 cm pretracheal lymph node on series 2 axial image #21 which is noncalcified. There is a hypodense abnormality in the subcarinal region adjacent to the calcified adenopathy which measures 1.7 cm as well, and may reflect a noncalcified necrotic lymph node. Heart size within normal limits. Extensive coronary artery calcification in multiple distributions. Prior cholecystectomy. Benign granulomas in the liver and spleen. 2 small masses involving the left adrenal glands have appearance characteristic of benign adrenal adenomas. Right adrenal gland is normal. No suspicious osteoblastic or osteolytic bone lesions. IMPRESSION: 1. 4.2 cm left lower lobe mass highly suspicious for primary lung neoplasm on a background of extensive emphysema and UIP. 2. Suspicious adenopathy in the pretracheal region and subcarinal region concerning for metastasis. Evaluation subcarinal adenopathy is somewhat difficult due to associated bulky calcified adenopathy from antecedent granulomatous disease. 3. 8 mm indeterminate nodule in the right medial lung base. 3. Other chronic changes as described. PQRS Compliance Statement: One or more of the following individualized dose reduction techniques were utilized for this examination: 1. Automated exposure control 2. Adjustment of the mA and/or kV according to patient size 3. Use of iterative reconstruction technique Electronically signed by: Ronald Bang MD (12/05/2019 1:11 PM) [id number]
== END | disposition home or self-care (01) ==
LOC: CT 10:52
PROVIDERS: ATTEND Internal Medicine Critical Care Medicine
DX: J44.9 Chronic obstructive pulmonary disease, unspecified (principal); J84.10 Pulmonary fibrosis, unspecified; R91.1 Solitary pulmonary nodule
CPT/HCPCS: 71250

== ENCOUNTER 2020-01-24 08:32 | Outpatient (CLI) | payer SELFPAY ==
[2020-01-24] VITALS (14 sets, daily range): BP systolic 112–157; BP diastolic 67–89
[~2020-01-24] VITALS: Ht 162.6 cm; Wt 74.8 kg
[2020-01-24] MEDS ORDERED: MULT-730 PO (08:58)
[2020-01-24] MEDS ORDERED: LIDOCAINE WITH 8.4% SOD BICARB 3 ML DISP.SYRIN. ONE (09:18)
[2020-01-24] MEDS ORDERED: MIDAZOLAM HCL/PF 2 MG/2 ML VIAL. ONE (09:26)
[2020-01-24] MEDS ORDERED: fentaNYL PF VIAL 100 MCG/2 ML VIAL ONE (09:26)
[2020-01-24 09:40] LABS: BASO # 0.1 x10^3/uL (0.0-0.2); BASO % 1 % (0-3); EOS # 0.5 x10^3/uL (0.0-0.7); EOS % 6 % (0-3); HEMATOCRIT 44.9 % (39.0-53.0); HEMOGLOBIN 15.6 g/dL (13.0-17.5); LYMPH # 1.3 x10^3/uL (1.0-4.8); LYMPH % 13 % (24-48); MEAN CORPUSCULAR HEMOGLOBIN 30 pg (25-35); MEAN CORPUSCULAR HGB CONC 35 g/dL (31-37); MEAN CORPUSCULAR VOLUME 86 fL (79-100); MONO # 0.6 x10^3/uL (0.0-1.1); MONO % 6 % (0-9); NEUT # 7.6 x10^3/uL (1.8-7.7); NEUT % 75 % (31-73); PLATELET COUNT 298 x10^3/uL (140-400); RED BLOOD COUNT 5.21 x10^6/uL (4.30-5.70); RED CELL DISTRIBUTION WIDTH 12.7 % (11.5-14.5)
[2020-01-24] MEDS ORDERED: MIDAZOLAM HCL/PF 2 MG/2 ML VIAL. IV ONE (09:45)
[2020-01-24] MEDS ORDERED: fentaNYL PF VIAL 100 MCG/2 ML VIAL IV ONE (09:45)
[2020-01-24] MEDS ORDERED: LIDOCAINE WITH 8.4% SOD BICARB 3 ML DISP.SYRIN. IJ ONE (09:45)
[2020-01-24 09:51] LABS: PROTHROMBIN TIME PATIENT 13.2 SEC (11.7-14.0)
--- NOTE | 2020-01-24 10:27 | PDOC ---
MODERATE SEDATION ASSESSMENT RISKS/ALTERNATIVES Risks/Alternatives Risks and alternatives of this type of sedation and procedure discussed with: RISK/ALTERNATIVES: Patient H & P ON CHART H & P H & P on chart and reviewed for co-morbid conditions and appropriate labs. H&P ON CHART: Yes STATUS PREG STATUS ASSESSED: Yes MEDS/ALLERGIES REVIEWED Meds/Allergies Reviewed Medications and Allergies including time and route of recently administered narcotics and sedatives. MEDS/ALLERGIES REVIEWED: Yes ASA RATING ASA RATING: III AIRWAY ASSESSMENT Airway Assessment Airway patency, oral function limitations, presence of caps, crowns, dentures, partials, and ability to extend neck assessed. AIRWAY ASSESSMENT: Yes MALLAMPATI SCORE MALLAMPATI SCORE: II PRE-SEDATION ASSESSMENT PRE-SEDATION ASSESSMENT: Yes SARAH LI MD Jan 24, 2020 10:27
--- NOTE | 2020-01-24 10:29 | PDOC ---
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 2 hr CXR . IF ok expect dc home SARAH LI MD Jan 24, 2020 10:29
[2020-01-24] MEDS ORDERED: oxyCODONE/APAP 7.5/325 1 TAB TABLET PO ONE (10:45)
--- NOTE | 2020-01-24 13:00 | NUR ---
pt A&O x4. states that back pain is resolved post pain med earlier. pt stated he wasn't hungry and just going to get something to eat when he leaves. tolerating liquids well. ambulated to BR w/o problem. dressing on left back area is clean and dry. d/c instructions given, questions answered. out to vehicle per w/c- his family picked him up at the outpatient door.
--- NOTE | 2020-01-24 17:41 | RAD ---
EXAM: CHEST AP ONLY 01/24/2020 12:30 PM CLINICAL INDICATION: Lung biopsy COMPARISON: CT chest 12/05/2019 and chest radiograph 11/22/2019 TECHNIQUE: AP upright view of the chest FINDINGS: The heart and mediastinum are normal. The lungs are mildly hypoexpanded. Extensive bilateral basilar and peripheral predominant interstitial opacities, greater in the right lung, are redemonstrated. Opacities are slightly increased at the left lung base, which could be postprocedural if there has been recent left lower lobe biopsy. No pleural effusion or pneumothorax. No acute osseous abnormality. IMPRESSION: 1. Slightly increased left basilar opacities, likely postprocedural if there has been recent left lower lobe biopsy. No pneumothorax. 2. Otherwise unchanged appearance of interstitial lung disease. Electronically signed by: Silke Rubalcava MD (01/24/2020 5:38 PM) [id number]
--- NOTE | 2020-01-26 09:27 | RAD ---
CT-guided biopsy, left lower lobe pulmonary nodule/mass 01/26/2020 INDICATION: Left lower lobe nodule/mass. History of interstitial lung disease Discussion: The risks and benefits of the procedure, including but not limited to, pneumothorax, bronchopleural fistula, bleeding and infection were discussed patient. Informed consent was obtained. The patient was brought to the CT scanner and placed in the prone position. A timeout procedure was performed. CT imaging was performed redemonstrating an irregular mass in the left lower lobe. 1% lidocaine was administered to the overlying skin and subcutaneous tissues. A 17-gauge needle was advanced into the mass. Core biopsies was were obtained. The needle was removed. Manual pressure was held. Repeat imaging demonstrates no pneumothorax or other complication. The patient was transferred to the recovery area in stable condition. The procedure was performed under conscious sedation including continuous cardiopulmonary monitoring via dedicated sedation nurse. Srbm-cp-[id number] sedation time: 30 minutes Impression: CT-guided biopsy, left lower lobe pulmonary mass PQRS Compliance Statement: One or more of the following individualized dose reduction techniques were utilized for this examination: 1. Automated exposure control 2. Adjustment of the mA and/or kV according to patient size 3. Use of iterative reconstruction technique
--- NOTE | 2020-01-27 15:09 | PATHOLOGY ---
[facility] Accession Number: [id number] . 01 Material submitted: . lung - BIOPSY LEFT LOWER LOBE, LUNG NODULE. Modifiers: left, lower lobe . 02 Diagnosis: Left lower lobe lung nodule, CT guided needle biopsies: - SQUAMOUS CELL CARCINOMA, MODERATELY DIFFERENTIATED. SEE COMMENT. (JPM:[facility] 01/26/2020) [facility] 01/26/2020 1206 Local . 02 Comment: Sections of the left lower lobe lung nodule CT-guided needle biopsy reveals several segments of tissue. One of the biopsy segments reveals a malignant epithelial neoplasm. The tumor cells are present in irregular solid nests and are associated with a reactive fibrotic stroma. The tumor cells are polygonal in shape, and have variable amounts of eosinophilic cytoplasm with well demarcated cell borders and focal intercellular bridges. The tumor cells possess enlarged, moderately pleomorphic hyperchromatic nuclei. Another biopsy segment consists of splenic tissue with a fibrous capsule and serosal lining. The last biopsy segment appears to consist of pleura with attached fibroadipose tissue showing focal mild chronic inflammation. The morphologic findings are supportive of the diagnosis of moderately differentiated squamous cell carcinoma. The case is also examined by Dr. Bañuelos, who concurs with the diagnosis. . The results are discussed with Dr. Donald on 01/26/20 at 1:05 PM. (JPM:[facility] 01/26/2020) . 02 Electronically signed: . Conrad Vinson MD, Pathologist NPI- [id number] . 01 Gross description: . The specimen is received in formalin, labeled "Rasta Bryan, left lung biopsy". The specimen is additionally labeled on the requisition as, "left lower lobe lung nodule". Received are three needle cores of pale loyd soft tissue ranging in length from 0.4 to 0.7 cm in length by 0.1 cm in diameter. The specimen is submitted entirely in cassettes A1 through A3. (CAA; 01/25/2020) QAC/QAC 01/25/2020 1339 Local . 02 Pathologist provided ICD-10: C34.32 . 02 CPT . 982698 Specimen Comment: A courtesy copy of this report has been sent to [phone], [phone] Specimen Comment: [id number] Specimen Comment: Report sent to / DR LANG Performed at: 01 [facility] [address] [place] [address] [id number] MD Ramón Bañuelos MD Phone: [phone] Performed at: 02 [facility] [address] [place] [address] [id number] MD Conrad Vinson MD Phone: [phone]
== END 2020-01-24 13:00 | disposition home or self-care (01) ==
LOC: INTRAD 08:32
PROVIDERS: ATTEND Internal Medicine Pulmonary Disease
DX: R91.8 Other nonspecific abnormal finding of lung field (principal); J84.9 Interstitial pulmonary disease, unspecified; Z87.891 Personal history of nicotine dependence; Z79.899 Other long term (current) drug therapy; Z98.890 Other specified postprocedural states; Z88.1 Allergy status to other antibiotic agents; Z88.8 Allergy status to other drugs, medicaments and biological substances; Z91.041 Radiographic dye allergy status
CPT/HCPCS: 32405; 36415; 71045; 77012; 85025; 85610; 99152; 99153; J2250; J3010; J3490

== ENCOUNTER 2020-02-07 18:52 | Emergency (ER) | payer SELFPAY ==
[~2020-02-07] VITALS: Ht 162.6 cm; Wt 71.0 kg
[~2020-02-07 18:52] MED LIST changes: +MULT-730 PO
--- NOTE | 2020-02-07 20:07 | RAD ---
CHEST AP ONLY History: Reason: cough sob / Spl. Instructions: / History: Comparison: January 24, 2020. CT December 05, 2019 Findings: Emphysematous changes with bilateral reticular interstitial opacities. Decreased opacities on the right compared to prior. No new consolidation. No pleural effusion. No pneumothorax. Normal heart size. Prominence of the bilateral fernando due to enlarged pulmonary arteries, unchanged. Impression: 1. Emphysematous changes with bilateral reticular interstitial opacities, related to chronic interstitial changes. No new consolidations. Electronically signed by: Terrence Haro DO (02/07/2020 8:04 PM) [facility]
--- NOTE | 2020-02-07 20:19 | PHYS DOC ---
Past Medical History Past Medical History: Diverticulitis, Gallstones, Other Additional Past Medical Histor: HERNIA,BORDER LINE DIABETIC Past Surgical History: Appendectomy, Other Additional Past Surgical Histo: HX COLOSTOMY, ABD SX WITH INTESTINES REMOVED Smoking Status: Former Smoker Alcohol Use: None Drug Use: None General Adult EDM: Chief Complaint: SHORTNESS OF BREATH HPI: HPI: Patient is a 59 year old male with a recent diagnosis of lung cancer per lung biopsy who presents with hemoptysis. Patient states after dinner tonight he was sitting on the couch watching TV when he began coughing. He coughed up some phlegm that had a bright red color to it initially, as he continued coughing it became a dark maroon color. He states he coughed up about 1 zabrina cup's worth of phlegm total. The coughing had stopped prior to his arrival to the ED. He denies any unusual shortness of breath, chest pain, or fever. Patient was told he may cough up blood after his biopsy two weeks ago but never did. He's wondering if the episode tonight is residual from the biopsy or some other cause. Patient reported a secondary concern of mid thoracic pain that a previous physician stated was musculoskeletal pain. No abnormalities were identified on visualization of his back but it was tender to palpation, predominantly on the left side medial to the inferior scapular angle. Patient states he has been hanging sheron lights and using a leaf blower recently which could contribute to the back pain. During exam-- patient coughed up approximately 15mls bright red blood. Patient requesting norco Rx. Review of Systems: Review of Systems: Constitutional: Denies fever or chills. [] Eyes: Denies change in visual acuity. [] HENT: Denies nasal congestion or sore throat. [] Respiratory: Positive for shortness of breath, cough, and hemoptysis Cardiovascular: Denies chest pain or edema. [] GI: Denies abdominal pain, nausea, vomiting, bloody stools or diarrhea. [] : Denies dysuria. [] Musculoskeletal: Denies joint pain. [Positive for mid-thoracic back pain] Integument: Denies rash. [] Neurologic: Denies headache, focal weakness or sensory changes. [] Endocrine: Denies polyuria or polydipsia. [] Heart Score: Risk Factors: Risk Factors: DM, Current or recent (<one month) smoker, HTN, HLP, family history of CAD, obesity. Risk Scores: Score 0 - 3: 2.5% MACE over next 6 weeks - Discharge Home Score 4 - 6: 20.3% MACE over next 6 weeks - Admit for Clinical Observation Score 7 - 10: 72.7% MACE over next 6 weeks - Early Invasive Strategies Allergies: Allergies: Allergies Coded Allergies Type Severity Reaction Last Updated Verified levofloxacin Allergy Intermediate HIVES 06/09/18 Yes Iodine and Iodide Containing Produc Adverse Reaction Mild N/V 06/09/18 Yes Physical Exam: PE: Constitutional: Well developed, well nourished, no acute distress, non-toxic appearance. [] HENT: Normocephalic, atraumatic, bilateral external ears normal, oropharynx moist, no oral exudates, nose normal. [] Eyes: PERRLA, EOMI, conjunctiva normal, no discharge. [] Neck: Normal range of motion, no tenderness, supple, no stridor. [] Cardiovascular:Heart rate regular rhythm, no murmur [] Lungs & Thorax: Bilateral breath sounds clear to auscultation [] Abdomen: Bowel sounds normal, soft, no tenderness, no masses, no pulsatile masses. [] Skin: Warm, dry, no erythema, no rash. [] Back: No tenderness, no CVA tenderness. [] Extremities: No tenderness, no cyanosis, no clubbing, ROM intact, no edema. [] Neurologic: Alert and oriented X 3, normal motor function, normal sensory function, no focal deficits noted. [] Psychologic: Affect normal, judgement normal, mood normal. [] EKG: EKG: [] Radiology/Procedures: Radiology/Procedures: [] Impression: indings: Emphysematous changes with bilateral reticular interstitial opacities. Decreased opacities on the right compared to prior. No new consolidation. No pleural effusion. No pneumothorax. Normal heart size. Prominence of the bilateral fernando due to enlarged pulmonary arteries, unchanged. Impression: 1. Emphysematous changes with bilateral reticular interstitial opacities, related to chronic interstitial changes. No new consolidations. Electronically signed by: Terrence Haro DO (02/07/2020 8:04 PM) [facility] Course & Med Decision Making: Course & Med Decision Making Pertinent Labs and Imaging studies reviewed. (See chart for details) [] Was evaluated for chief complaint. Work-up consisted of laboratory analysis radiologic imaging. Results reviewed discussed with patient. Chest x-ray no acute abnormalities patient's hemoglobin is stable. Patient did have an episode of hemoptysis during exam spitting up approximately 15 mL of bright red blood. Denies any new shortness of breath. Patient does complain of chronic back pain he is requesting hydrocodone prescription. Discussed patient with pulmonology Dr Milan archibald to discharge home patient to follow-up. Recommends cough medicine short dose of prednisone Dragon Disclaimer: Smitha Disclaimer: This electronic medical record was generated, in whole or in part, using a voice recognition dictation system. Departure Departure Impression: Primary Impression: Hemoptysis Additional Impression: Lung mass Disposition: HOME SELF CARE/HOMELESS Condition: STABLE Referrals: NO PCP (PCP) Patient Instructions: Back Pain, Adult, Hemoptysis Scripts Prednisone (PREDNISONE ) 10 Mg Tablet 1 TAB PO BID for 5 Days, #10 TAB 0 Refills 50MG po Q DAY X 5 DAYS Prov: ANTONIA MAURO DO 02/07/20 Hydrocodone/Apap 5-325 (NORCO 5-325 TABLET) 1 Each Tablet 1-2 TAB PO Q4-6HRS, #20 TAB Prov: ANTONIA MAURO I DO 02/07/20 Guaifenesin/Codeine Phosphate (Codeine-Guaifen 10-100 mg/5 ml) 120 Ml Liquid 5 ML PO PRN Q6HRS PRN for cough and congestion MDD 20 Milliliter(s) for 6 Days, #120 ML 0 Refills Prov: ANTONIA MAURO DO 02/07/20 ANOTNIA MAURO I DO Feb 07, 2020 20:19
[2020-02-07] MEDS ORDERED: MORPHINE SULFATE 2 MG/ML VIAL. IV ONE (20:30)
[2020-02-07 20:38] LABS: BASO # 0.1 x10^3/uL (0.0-0.2); BASO % 1 % (0-3); EOS # 0.4 x10^3/uL (0.0-0.7); EOS % 4 % (0-3); HEMOGLOBIN 15.1 g/dL (13.0-17.5); LYMPH # 1.3 x10^3/uL (1.0-4.8); LYMPH % 13 % (24-48); MEAN CORPUSCULAR HEMOGLOBIN 30 pg (25-35); MEAN CORPUSCULAR HGB CONC 35 g/dL (31-37); MEAN CORPUSCULAR VOLUME 86 fL (79-100); MONO # 0.6 x10^3/uL (0.0-1.1); MONO % 6 % (0-9); NEUT # 7.7 x10^3/uL (1.8-7.7); NEUT % 76 % (31-73); PLATELET COUNT 385 x10^3/uL (140-400); RED BLOOD COUNT 5.02 x10^6/uL (4.30-5.70); RED CELL DISTRIBUTION WIDTH 12.8 % (11.5-14.5); WHITE BLOOD COUNT 10.1 x10^3/uL (4.0-11.0)
[2020-02-07 20:50] LABS: CALCIUM 9.4 mg/dL (8.5-10.1); CREATININE 0.8 mg/dL (0.7-1.3); GFR 98.6; POTASSIUM 4.1 mmol/L (3.5-5.1)
[2020-02-07 21:00] VITALS: BP 144/94
[2020-02-07] MEDS ORDERED: HYDR-3164 PO (21:13)
[2020-02-07] MEDS ORDERED: GUAI120L35 PO (21:13)
[2020-02-07] MEDS ORDERED: PRED-220 PO (21:14)
== END 2020-02-07 21:28 | disposition home or self-care (01) ==
LOC: ER 18:52
DX: R04.2 Hemoptysis (principal); R91.8 Other nonspecific abnormal finding of lung field; R06.02 Shortness of breath; M54.9 Dorsalgia, unspecified; G89.29 Other chronic pain; Z88.1 Allergy status to other antibiotic agents; Z90.89 Acquired absence of other organs; Z98.890 Other specified postprocedural states; Z87.891 Personal history of nicotine dependence; Z91.040 Latex allergy status
CPT/HCPCS: 36415; 71045; 80048; 85025; 96374; 99284; J2270

== ENCOUNTER 2020-02-22 13:45 | Emergency (ER) | payer SELFPAY ==
[~2020-02-22] VITALS: Ht 162.6 cm; Wt 71.0 kg
[~2020-02-22 13:45] MED LIST changes: +ALPR0.5T6 PO; +AMIT50TA PO; +APIX5TAB PO; +ASPI-886 PO; +DIGO125T3 PO; +DILT240C33 PO; +GUAI120L35 PO; +INSU100V35 SQ; +LEVO25TA4 PO; +METO50TA6 PO; +MIRT15TA3 PO; +MIRT30TA93 PO; +PRED-220 PO; +TIZA4TAB2 PO
[2020-02-22 15:33] LABS: BASO # 0.1 x10^3/uL (0.0-0.2); BASO % 1 % (0-3); EOS # 0.2 x10^3/uL (0.0-0.7); EOS % 2 % (0-3); HEMOGLOBIN 16.2 g/dL (13.0-17.5); LYMPH # 1.3 x10^3/uL (1.0-4.8); LYMPH % 9 % (24-48); MEAN CORPUSCULAR HEMOGLOBIN 30 pg (25-35); MEAN CORPUSCULAR HGB CONC 34 g/dL (31-37); MEAN CORPUSCULAR VOLUME 86 fL (79-100); MONO # 0.9 x10^3/uL (0.0-1.1); MONO % 6 % (0-9); NEUT # 11.6 x10^3/uL (1.8-7.7); NEUT % 82 % (31-73); PLATELET COUNT 333 x10^3/uL (140-400); RED BLOOD COUNT 5.45 x10^6/uL (4.30-5.70); RED CELL DISTRIBUTION WIDTH 12.9 % (11.5-14.5); WHITE BLOOD COUNT 14.1 x10^3/uL (4.0-11.0)
--- NOTE | 2020-02-22 15:33 | PHYS DOC ---
Past Medical History Past Medical History: Cancer, Diabetes-Type II, Gallstones Additional Past Medical Histor: LEFT LUNG MASS Past Surgical History: Cholecystectomy, Other Additional Past Surgical Histo: HERNIA SX Smoking Status: Former Smoker Alcohol Use: None Drug Use: None General Adult EDM: Chief Complaint: HEMATEMESIS/VOMITING BLOOD HPI: HPI: Patient is a 59 year old male patient who presents with hemoptysis. States he had woken overnight with a cough and noticing he has had some blood in his sputum. States he only is coughing intermittently, has had to force his cough at times because it seems so thick. States he has history of lung cancer, he recently had CTA in this facility approximately 10 days ago without findings, he has been on Eliquis prior to and since that visit. States he also has pulmonary fibrosis, he had a lung biopsy a few months ago, and had similar symptoms with hemoptysis and had consulted his tnt powder worker and was advised it was the scab coming off his lung. States no fever, states no new discomfort, he chronically has some discomfort to his back. States no abnormal SOA, other than his chronic SOA. Reports he was more concerned over the cough as he did not know what else he could do about it, as he had been told other medications will interfere with his eliquis. He had recently seen Cardiology and had aortic imaging done and was just told he has aortic stenosis without additional cardiac concerns other than newer onset A Fib which is why he takes Eliquis. Review of Systems: Review of Systems: Constitutional: Denies fever or chills. [] Eyes: Denies change in visual acuity. [] HENT: Denies nasal congestion or sore throat. [] Respiratory: Denies change in SOA compared to his normal. States he has had a cough with bloody sputum, initially bright red and now dark red, clotted. Cardiovascular: Denies chest pain or edema. [] GI: Denies abdominal pain, nausea, vomiting, bloody stools or diarrhea. [] : Denies dysuria. [] Musculoskeletal: Denies joint pain. [States he does have some back pain which is chronic] Integument: Denies rash. [] Neurologic: Denies headache, focal weakness or sensory changes. [] Endocrine: Denies polyuria or polydipsia. [] Lymphatic: Denies swollen glands. [] Psychiatric: Denies depression or anxiety. [] Heart Score: Risk Factors: Risk Factors: DM, Current or recent (<one month) smoker, HTN, HLP, family history of CAD, obesity. Risk Scores: Score 0 - 3: 2.5% MACE over next 6 weeks - Discharge Home Score 4 - 6: 20.3% MACE over next 6 weeks - Admit for Clinical Observation Score 7 - 10: 72.7% MACE over next 6 weeks - Early Invasive Strategies Allergies: Allergies: Allergies Coded Allergies Type Severity Reaction Last Updated Verified levofloxacin Allergy Intermediate HIVES 06/09/18 Yes Iodine and Iodide Containing Produc Adverse Reaction Mild N/V 06/09/18 Yes Physical Exam: PE: Constitutional: Well developed, well nourished, no acute distress, non-toxic appearance. conversational[] HENT: Normocephalic, atraumatic, bilateral external ears normal, oropharynx moist, no oral exudates, nose normal. [] Eyes: PERRLA, EOMI, conjunctiva normal, no discharge. [] Neck: Normal range of motion, no tenderness, supple, no stridor. [] Cardiovascular:Heart rate regular rhythm, no murmur [] Lungs & Thorax: Bilateral breath sounds clear to auscultation Speaking in multiple word sentences without stopping in no apparent respiratory distress[] Abdomen: Bowel sounds normal, soft, no tenderness, no masses, no pulsatile masses. [] Skin: Warm, dry, no erythema, no rash. [] Back: No tenderness, no CVA tenderness. [] Extremities: No tenderness, no cyanosis, no clubbing, ROM intact, no edema. [] Neurologic: Alert and oriented X 3, normal motor function, normal sensory function, no focal deficits noted. [] Psychologic: Affect normal, judgement normal, mood normal. [] Current Patient Data: Vital Signs: Vital Signs Date Time Temp Pulse Resp B/P (MAP) Pulse Ox O2 Delivery O2 Flow Rate FiO2 02/22/20 14:38 97.6 97 24 147/78 (101) 97 Room Air 97.6 EKG: EKG: [] Radiology/Procedures: Radiology/Procedures: []Chest radiograph 02/22/2020 3:24 PM INDICATION: Cough, history of lung cancer COMPARISON: 02/12/2020 TECHNIQUE: Frontal and lateral views of the chest are provided. FINDINGS: The cardiomediastinal silhouette is within normal limits. Coarse interstitial changes are identified with lower lung zone predominance. There is suggestion of honeycombing at the lung bases suggestive of pulmonary fibrotic changes. No new airspace consolidation is identified. There may be trace right pleural effusion versus pleural thickening. No pneumothorax. No significant osseous abnormality is identified. IMPRESSION: 1. Coarse interstitial changes are identified with suggestion of honeycombing at the lung bases suggestive of pulmonary fibrotic changes. No new airspace consolidation is identified. 2. Trace right pleural effusion versus pleural thickening. Electronically signed by: Eden Stokes MD (02/22/2020 3:40 PM) [facility] Course & Med Decision Making: Course & Med Decision Making Pertinent Labs and Imaging studies reviewed. (See chart for details) []Given recent CTA, recent cardiac work up with cardiology, and patient cur rently on Eliquis, believe low risk for new onset PE. Patient does have PET scan with oncology scheduled in less than 48 hours. He is reporting his main concern today is his cough and not knowing what he can take. Will evaluate chest x ray to ensure no signs of pneumonia and basic labs to ensure no abnormalities as well as no elevated INR due to anticoagulants. Patient in agreement with this and has pulmonology consult soon after PET scan. Patient maintaining SpO2 94-95% on room air with no air hunger. HR 99-100. No further episodes of hemoptysis during ER stay, only the one reported on his initial arrival. Discussion of findings with patient without acute concerning findings. Will plan to discharge with Elieser Tam and patient to keep his follow up appointment 02/23 for PET scan and following this, his Watchstander appointment. Smitha Disclaimer: Smitha Disclaimer: This electronic medical record was generated, in whole or in part, using a voice recognition dictation system. Departure Departure Impression: Primary Impression: Hemoptysis Additional Impression: Cough Disposition: 01 DC HOME SELF CARE/HOMELESS Condition: GOOD Referrals: NO PCP (PCP) Patient Instructions: Benzonatate capsules, Cough, Adult Additional Instructions: As discussed, make sure you keep your appointment with your oncologist and follow up with your tnt powder worker after your exams with oncology are planned. You may take the cough medication as needed. Follow up with your primary care for other concerns. Take your home pain medications as needed. Scripts Benzonatate (TESSALON PERLE) 100 Mg Capsule 100 MG PO TID PRN for COUGH for 10 Days, #30 CAP Prov: TORO ULLOA APRN 02/22/20 TORO ULLOA APRN Feb 22, 2020 15:33
[2020-02-22 15:43] LABS: CALCIUM 10.3 mg/dL (8.5-10.1); CREATININE 0.5 mg/dL (0.7-1.3); GFR 169.6; POTASSIUM 4.4 mmol/L (3.5-5.1)
--- NOTE | 2020-02-22 15:43 | RAD ---
Chest radiograph 02/22/2020 3:24 PM INDICATION: Cough, history of lung cancer COMPARISON: 02/12/2020 TECHNIQUE: Frontal and lateral views of the chest are provided. FINDINGS: The cardiomediastinal silhouette is within normal limits. Coarse interstitial changes are identified with lower lung zone predominance. There is suggestion of honeycombing at the lung bases suggestive of pulmonary fibrotic changes. No new airspace consolidation is identified. There may be trace right pleural effusion versus pleural thickening. No pneumothorax. No significant osseous abnormality is identified. IMPRESSION: 1. Coarse interstitial changes are identified with suggestion of honeycombing at the lung bases suggestive of pulmonary fibrotic changes. No new airspace consolidation is identified. 2. Trace right pleural effusion versus pleural thickening. Electronically signed by: Eden Stokes MD (02/22/2020 3:40 PM) [facility]
[2020-02-22 15:49] LABS: ALBUMIN 3.6 g/dL (3.4-5.0); ALBUMIN/GLOBULIN RATIO 0.8 (1.0-1.7); TOTAL BILIRUBIN 0.4 mg/dL (0.2-1.0); TOTAL PROTEIN 8.3 g/dL (6.4-8.2)
[2020-02-22] MEDS ORDERED: BENZ100C PO (16:25)
[2020-02-22] MEDS ORDERED: HYDROcodone/APAP 7.5/325MG 1 TAB TABLET PO ONE (16:30)
[2020-02-22 16:45] VITALS: BP 136/81
== END 2020-02-22 16:48 | disposition home or self-care (01) ==
LOC: ER 13:45
DX: R04.2 Hemoptysis (principal); I48.91 Unspecified atrial fibrillation; E11.9 Type 2 diabetes mellitus without complications; Z87.891 Personal history of nicotine dependence; Z85.118 Personal history of other malignant neoplasm of bronchus and lung
CPT/HCPCS: 36415; 71046; 80053; 84484; 85025; 85730; 99284

== ENCOUNTER → 2020-03-02 | Outpatient (CLI) | payer OTHER ==
[2020-02-22 16:45] VITALS: BP 136/81
[~2020-03-02] MED LIST changes: +BENZ100C PO
--- NOTE | 2020-03-02 17:02 | RAD ---
Examination: PET W CT SKULL TO MIDTHIGH History: Lung carcinoma: Comparison/Correlation: 12/05/2019 CT chest without contrast, 11/22/2019 CT abdomen and pelvis without c ontrast FINDINGS: Net dose 13.2 mCi F-18 FDG was administered intravenously for purposes of PET/CT exam. Bl ood glucose level at the time of radiotracer administration was 194 mg/dL. Imaging was performed fro m the skull base to the proximal thighs. Hepatic reference uptake is SUV max of 2.5 . Uptake of radiotracer involving visualized head and neck is normal. Right lower paratracheal lymph no de measures 2.8 cm x 3 cm with necrotic low attenuation center evident. This represents an increase i n size by 1.1 cm x 1.1 cm compared to the previous CT exam. SUV max of up to 4.7 is seen. Central gris topenia is present. Uptake is primarily at the rim of this enlarged lymph node. The subcarinal region , coarse calcification is noted on the left. On the right in the subcarinal region, there is an enlar ged lymph node which extends inferiorly and has a SUV max of 4 . This abuts the anterior aspect of th e esophagus. This enlarged lymph node has SUV max of 4. This has increased in the interval currently measuring 4.6 x 3 previous exam where it was 0.8 cm x 1.1 cm less in size. This is best seen on axial image 161 of series 3. Posterior to left atrium and left pulmonary veins, there is an enlarged lymph node or mass with uptake in its periphery of SUV max 4.3. Central photopenia is noted. This also abu ts the esophagus at its left anterior margin. It measures up to 5.1 cm x 3.8 cm on axial image 167 of series 3 representing an increase of 1.3 cm x 0.7 cm compared to prior CT exam. At the left costophrenic angle, there is a mass with intense uptake having SUV max of 6.4. It is incr eased in size measuring 5 cm x 3.6 cm on axial image 184 of series 3. This is an increase of 1 cm x 1 .6 cm compared to the previous exam. Nodule at the medial right lower lung field measuring 0.8 cm in diameter is unchanged. No uptake is e vident. Findings of idiopathic pulmonary fibrosis again evident. Emphysematous involvement of lung dawson als o unremarkable. There are multiple new groundglass infiltrate at the left posterior midlung region at the left hilar level is seen compared to previous exam. Liver, pancreas, adrenal glands, and kidneys are unremarkable. Spleen is borderline enlarged measurin g up to 13.8 cm longitudinal with numerous calcified granulomas. Large amount of debris distends the stomach. Cholecystectomy noted. Postoperative findings of the anterior abdominal wall with multiple h ernia defect containing small amount of omental fat noted. Suture material along the proximal colon i s evident.. No abnormal uptake involving bony structures. IMPRESSION: Abnormal uptake involving mediastinal lymphadenopathy and the left lower lobe mass. Increased size of the enlarged lymph nodes and masses including the left lower lung mass. Findings consistent with act yana neoplastic and metastatic disease. No abnormal uptake involving the right lung nodule. Interval ground glass infiltrates at the posterior left midlung region. Advanced idiopathic pulmonary fibrosis. Emphysematous component of the lung dawson. No abnormal uptake of radiotracer involving the abdomen or pelvis. PQRS Compliance Statement: One or more of the following individualized dose reduction techniques were utilized for this examinat ion: 1. Automated exposure control 2. Adjustment of the mA and/or kV according to patient size 3. Use of iterative reconstruction technique Electronically signed by: Isreal Menchaca MD (03/02/2020 4:59 PM) [id number]
== END ==
LOC: PETSC 08:19
PROVIDERS: ATTEND Internal Medicine Hematology & Oncology
DX: C34.32 Malignant neoplasm of lower lobe, left bronchus or lung (principal); R91.1 Solitary pulmonary nodule; J43.9 Emphysema, unspecified; R59.9 Enlarged lymph nodes, unspecified
CPT/HCPCS: 78815; A9552

== ENCOUNTER → 2020-03-06 | Outpatient (CLI) | payer OTHER ==
[2020-02-22 16:45] VITALS: BP 136/81
[2020-03-06 14:27] LABS: BASO # 0.1 x10^3/uL (0.0-0.2); BASO % 1 % (0-3); EOS # 0.3 x10^3/uL (0.0-0.7); EOS % 3 % (0-3); HEMATOCRIT 39.9 % (39.0-53.0); HEMOGLOBIN 13.9 g/dL (13.0-17.5); LYMPH # 1.4 x10^3/uL (1.0-4.8); LYMPH % 13 % (24-48); MEAN CORPUSCULAR HEMOGLOBIN 30 pg (25-35); MEAN CORPUSCULAR HGB CONC 35 g/dL (31-37); MEAN CORPUSCULAR VOLUME 85 fL (79-100); MONO # 0.8 x10^3/uL (0.0-1.1); MONO % 8 % (0-9); NEUT # 8.2 x10^3/uL (1.8-7.7); NEUT % 76 % (31-73); PLATELET COUNT 388 x10^3/uL (140-400); RED BLOOD COUNT 4.72 x10^6/uL (4.30-5.70); RED CELL DISTRIBUTION WIDTH 12.6 % (11.5-14.5); WHITE BLOOD COUNT 10.9 x10^3/uL (4.0-11.0)
[2020-03-06 14:44] LABS: CALCIUM 9.8 mg/dL (8.5-10.1); CREATININE 0.7 mg/dL (0.7-1.3); POTASSIUM 4.1 mmol/L (3.5-5.1)
[2020-03-06 14:51] LABS: ALBUMIN 3.3 g/dL (3.4-5.0); ALBUMIN/GLOBULIN RATIO 0.8 (1.0-1.7); TOTAL BILIRUBIN 0.4 mg/dL (0.2-1.0); TOTAL PROTEIN 7.7 g/dL (6.4-8.2)
[2020-03-07 02:09] LABS: HEMOGLOBIN A1C 8.2 % (4.8-5.6)
== END ==
LOC: ONCLAB 09:20
PROVIDERS: ATTEND Internal Medicine Hematology & Oncology
DX: C34.32 Malignant neoplasm of lower lobe, left bronchus or lung (principal); E11.9 Type 2 diabetes mellitus without complications
CPT/HCPCS: 36415; 80053; 83036; 85025

== ENCOUNTER → 2020-03-14 | Outpatient (CLI) | payer OTHER ==
[2020-02-22 16:45] VITALS: BP 136/81
[2020-03-14] MEDS: GADOTERATE 7.5 MMOL/15ML VIAL. IVP ONE (12:11)
--- NOTE | 2020-03-14 12:48 | RAD ---
MRI BRAIN WO+W Date: 03/14/2020 11:07 AM Indication: mets check. Hx squamous cell lung Comparison: None. Technique: Multiplanar multisequence MRI of the brain was performed with and without intravenous cont rast using the standard protocol. 13 cc Clariscan contrast was administered intravenously during the exam. Findings: No acute infarct. No acute or chronic hemorrhage. The ventricles are normal in size and configuration without hydrocephalus. No abnormal enhancement. The scalp and calvarium are normal. The pituitary and sella are normal. No Chiari malformation. The v isualized upper cervical spine is normal. The visualized orbits and globes are normal. The visualized paranasal sinuses are clear. The mastoid air cells are clear. Normal flow voids within the vertebral, basilar, and internal carotid arteries indicating patency. IMPRESSION: No evidence of intracranial metastatic disease. Electronically signed by: Joe Choe MD (03/14/2020 12:45 PM) [id number]
== END ==
LOC: MRI 11:15
PROVIDERS: ATTEND Radiology Radiation Oncology
DX: Z85.118 Personal history of other malignant neoplasm of bronchus and lung (principal)
CPT/HCPCS: 70553; A9575

== ENCOUNTER → 2020-03-19 | Outpatient (CLI) | payer OTHER ==
[2020-02-22 16:45] VITALS: BP 136/81
[~2020-03-19] MED LIST changes: +ENOX60DI SQ; +GLIP5TAB10 PO; +MIRT-7 PO; -MIRT15TA3 PO; +ONDA4TAB12 PO; +OXYC5TAB2 PO; +PANT40TA6 PO; +PIOG15TA42 PO; +PRED20TA PO; +PROC10TA57 PO; +[UNRECOGNIZED DRUG - OTHER] PO
[2020-03-19 09:11] LABS: BASO # 0.2 x10^3/uL (0.0-0.2); BASO % 1 % (0-3); CALCIUM 9.6 mg/dL (8.5-10.1); CREATININE 0.7 mg/dL (0.7-1.3); EOS # 0.3 x10^3/uL (0.0-0.7); EOS % 2 % (0-3); HEMATOCRIT 38.7 % (39.0-53.0); HEMOGLOBIN 13.2 g/dL (13.0-17.5); LYMPH # 0.9 x10^3/uL (1.0-4.8); LYMPH % 7 % (24-48); MEAN CORPUSCULAR HEMOGLOBIN 29 pg (25-35); MEAN CORPUSCULAR HGB CONC 34 g/dL (31-37); MEAN CORPUSCULAR VOLUME 85 fL (79-100); MONO % 8 % (0-9); NEUT # 11.2 x10^3/uL (1.8-7.7); NEUT % 82 % (31-73); PLATELET COUNT 448 x10^3/uL (140-400); POTASSIUM 4.1 mmol/L (3.5-5.1); RED BLOOD COUNT 4.57 x10^6/uL (4.30-5.70); RED CELL DISTRIBUTION WIDTH 13.2 % (11.5-14.5); WHITE BLOOD COUNT 13.7 x10^3/uL (4.0-11.0)
[2020-03-19 09:16] LABS: ALBUMIN 3.1 g/dL (3.4-5.0); ALBUMIN/GLOBULIN RATIO 0.7 (1.0-1.7); TOTAL BILIRUBIN 0.4 mg/dL (0.2-1.0); TOTAL PROTEIN 7.6 g/dL (6.4-8.2)
== END ==
LOC: ONCLAB 08:33
PROVIDERS: ATTEND Internal Medicine Hematology & Oncology
DX: C34.32 Malignant neoplasm of lower lobe, left bronchus or lung (principal)
CPT/HCPCS: 36415; 80053; 85025

== ENCOUNTER 2020-03-22 08:40 | Outpatient (CLI) | payer OTHER ==
[~2020-03-22] VITALS: Ht 162.6 cm; Wt 68.0 kg
[2020-03-22] VITALS (7 sets, daily range): BP systolic 94–126; BP diastolic 59–69
[~2020-03-22 08:40] MED LIST changes: -ENOX60DI SQ; -GLIP5TAB10 PO; -MIRT-7 PO; +MIRT15TA3 PO; -ONDA4TAB12 PO; -OXYC5TAB2 PO; -PANT40TA6 PO; -PIOG15TA42 PO; -PRED20TA PO; -PROC10TA57 PO; -[UNRECOGNIZED DRUG - OTHER] PO
[2020-03-22] MEDS ORDERED: ceFAZolin SODIUM IV Push 1 GM VIAL. IVP ONE ×3 (09:00→10:05)
[2020-03-22] MEDS ORDERED: ONDA4TAB12 PO (09:24)
[2020-03-22] MEDS ORDERED: PROC10TA57 PO (09:24)
[2020-03-22] MEDS ORDERED: GLIP5TAB10 PO (09:24)
[2020-03-22] MEDS ORDERED: PIOG15TA42 PO (09:24)
[2020-03-22 09:33] LABS: BASO # 0.1 x10^3/uL (0.0-0.2); BASO % 1 % (0-3); EOS # 0.3 x10^3/uL (0.0-0.7); EOS % 2 % (0-3); HEMOGLOBIN 13.4 g/dL (13.0-17.5); LYMPH # 0.8 x10^3/uL (1.0-4.8); LYMPH % 7 % (24-48); MEAN CORPUSCULAR HEMOGLOBIN 29 pg (25-35); MEAN CORPUSCULAR HGB CONC 34 g/dL (31-37); MEAN CORPUSCULAR VOLUME 85 fL (79-100); MONO # 0.9 x10^3/uL (0.0-1.1); MONO % 8 % (0-9); NEUT # 10.1 x10^3/uL (1.8-7.7); NEUT % 82 % (31-73); PLATELET COUNT 443 x10^3/uL (140-400); RED BLOOD COUNT 4.59 x10^6/uL (4.30-5.70); RED CELL DISTRIBUTION WIDTH 12.7 % (11.5-14.5); WHITE BLOOD COUNT 12.2 x10^3/uL (4.0-11.0)
[2020-03-22 09:47] LABS: PROTHROMBIN TIME PATIENT 13.8 SEC (11.7-14.0)
[2020-03-22] MEDS ORDERED: LIDOCAINE 1%/EPI 1:100,000 20 ML VIAL. ONE (09:52)
[2020-03-22] MEDS ORDERED: fentaNYL PF VIAL 100 MCG/2 ML VIAL ONE (10:05)
[2020-03-22] MEDS ORDERED: MIDAZOLAM HCL/PF 2 MG/2 ML VIAL. ONE ×2 (10:05→10:28)
[2020-03-22] MEDS ORDERED: fentaNYL PF VIAL 100 MCG/2 ML VIAL IV ONE (10:30)
[2020-03-22] MEDS ORDERED: MIDAZOLAM HCL/PF 2 MG/2 ML VIAL. IV ONE (10:30)
[2020-03-22] MEDS ORDERED: LIDOCAINE 1%/EPI 1:100,000 20 ML VIAL. INJ ONE (10:30)
--- NOTE | 2020-03-22 10:32 | PDOC ---
MODERATE SEDATION ASSESSMENT RISKS/ALTERNATIVES Risks/Alternatives Risks and alternatives of this type of sedation and procedure discussed with: RISK/ALTERNATIVES: Patient H & P ON CHART H & P H & P on chart and reviewed for co-morbid conditions and appropriate labs. H&P ON CHART: Yes STATUS PREG STATUS ASSESSED: Yes MEDS/ALLERGIES REVIEWED Meds/Allergies Reviewed Medications and Allergies including time and route of recently administered narcotics and sedatives. MEDS/ALLERGIES REVIEWED: Yes ASA RATING ASA RATING: III AIRWAY ASSESSMENT Airway Assessment Airway patency, oral function limitations, presence of caps, crowns, dentures, partials, and ability to extend neck assessed. AIRWAY ASSESSMENT: Yes MALLAMPATI SCORE MALLAMPATI SCORE: II PRE-SEDATION ASSESSMENT PRE-SEDATION ASSESSMENT: Yes SARAH LI MD Mar 22, 2020 10:32
--- NOTE | 2020-03-22 10:34 | PDOC ---
Exam Heel Slugger Heel Slugger Britton Integrated Logistics Operations Manager Integrated Logistics Operations Manager Lupe Pre-Procedure Diagnosis Pre-Procedure Diagnosis Lung Cancer. Port for chemo Post-Procedure Diagnosis Post-Procedure Diagnosis same Procedure Performed Procedure Performed right powerport placement Type of Anesthesia Type of Anesthesia mod sed Estimated Blood Loss EBL: 5 Specimens Specimans None Drain/Tubes Drains/Tubes Bard powerport, rij Condition of Patient Condition of Patient Stable Disposition Disposition to CVOBS, expect DC SARAH LI MD Mar 22, 2020 10:33
--- NOTE | 2020-03-22 12:30 | NUR ---
pt A&Ox 4. c/o chronic back pain due to CA. scale is 5/10 at this time. dressing on rt chest is clean and dry. tolerating po well. VSS. ambulated to BR w/o problem . d/c instructions reviewed and questions answered. out to vehicle per w/c- roommate to dry him home
--- NOTE | 2020-03-23 08:20 | RAD ---
Procedure: Ultrasound and fluoroscopically guided placement of right internal jugular power port.. 03/23/2020 6:15 AM Clinical Indication: Chemotherapy Lung CA Sedation: Conscious sedation was administered for 25minutes. The patient was monitored by a qualified independent observer throughout the time of sedation. Please refer to the medical record for exact doses of medications utilized to achieve moderate sedation. Fluoroscopy time: 0.3 minutes Dose area product: 1Gycm2 Consent: The procedure was explained in its entirety to the patient or the patients designated independent sales representative by a member of the treatment team, including a discussion of the risks, benefits and commonly accepted alternatives to the procedure, as well as the expected consequences of no therapy whatsoever. Discussion of the risks included, but was not limited to, those that are most frequent and those that are rare but possibly severe or life-threatening, as well as the possibility of unforeseen complications. Technique and Findings: All elements of maximal sterile barrier technique including the use of a cap, mask, sterile gown, sterile gloves, large sterile sheet, appropriate hand hygiene, and 2% chlorhexidine for cutaneous antisepsis (or acceptable alternative antiseptic per current guidelines) were followed for this procedure. Following informed consent, and a timeout procedure, the patient was prepped and draped in the usual sterile fashion. Ultrasound interrogation of the right neck revealed patency and compressibility of the right internal jugular vein. A 21-gauge micropuncture was then used to gain access to this vein under ultrasound guidance. A hard copy ultrasound image was recorded. The needle was exchanged over a wire for a sheath. A 1 inch incision was made several centimeters inferior to the venotomy site. A catheter was tunneled from this site dermatotomy site in the neck. Catheter was advanced through peel-away sheath such that its tip was in the proximal right atrium with the patient supine. The catheter was trimmed to length and connected to the port reservoir. The port was found to flush and aspirate normally. The wound was closed in layers using 4-0 Vicryl suture. Sterile dressings were applied. Impression: Successful ultrasound and fluoroscopically guided placement of a right internal jugular PowerPort
== END 2020-03-22 12:05 | disposition home or self-care (01) ==
LOC: INTRAD 08:40
PROVIDERS: ATTEND Physician Assistant
DX: Z45.2 Encounter for adjustment and management of vascular access device (principal); C34.32 Malignant neoplasm of lower lobe, left bronchus or lung; E11.9 Type 2 diabetes mellitus without complications; K21.9 Gastro-esophageal reflux disease without esophagitis; I48.91 Unspecified atrial fibrillation; Z87.891 Personal history of nicotine dependence; Z79.82 Long term (current) use of aspirin; Z79.899 Other long term (current) drug therapy; Z98.890 Other specified postprocedural states; Z91.041 Radiographic dye allergy status; Z88.1 Allergy status to other antibiotic agents
CPT/HCPCS: 36415; 36561; 76937; 77001; 85025; 85610; 99152; 99153; C1751; C1892; J0690; J2250; J3010; J3490

== ENCOUNTER → 2020-03-27 | Outpatient (CLI) | payer OTHER ==
[2020-03-22 11:45] VITALS: BP 114/65
[~2020-03-27] MED LIST changes: +ENOX60DI SQ; +GLIP5TAB10 PO; +MIRT-7 PO; -MIRT15TA3 PO; +ONDA4TAB12 PO; +OXYC5TAB2 PO; +PANT40TA6 PO; +PIOG15TA42 PO; +PRED20TA PO; +PROC10TA57 PO; +[UNRECOGNIZED DRUG - OTHER] PO
[2020-03-27 08:27] LABS: BASO # 0.1 x10^3/uL (0.0-0.2); BASO % 1 % (0-3); EOS # 0.3 x10^3/uL (0.0-0.7); EOS % 3 % (0-3); HEMATOCRIT 38.3 % (39.0-53.0); HEMOGLOBIN 12.9 g/dL (13.0-17.5); LYMPH # 0.5 x10^3/uL (1.0-4.8); LYMPH % 4 % (24-48); MEAN CORPUSCULAR HEMOGLOBIN 28 pg (25-35); MEAN CORPUSCULAR HGB CONC 34 g/dL (31-37); MEAN CORPUSCULAR VOLUME 84 fL (79-100); MONO % 9 % (0-9); NEUT # 9.6 x10^3/uL (1.8-7.7); NEUT % 83 % (31-73); PLATELET COUNT 436 x10^3/uL (140-400); RED BLOOD COUNT 4.57 x10^6/uL (4.30-5.70); RED CELL DISTRIBUTION WIDTH 13.1 % (11.5-14.5); WHITE BLOOD COUNT 11.5 x10^3/uL (4.0-11.0)
[2020-03-27 08:37] LABS: CALCIUM 9.7 mg/dL (8.5-10.1); CREATININE 0.8 mg/dL (0.7-1.3); GFR 98.6; POTASSIUM 4.4 mmol/L (3.5-5.1)
[2020-03-27 08:43] LABS: ALBUMIN 2.9 g/dL (3.4-5.0); ALBUMIN/GLOBULIN RATIO 0.6 (1.0-1.7); TOTAL BILIRUBIN 0.3 mg/dL (0.2-1.0); TOTAL PROTEIN 7.5 g/dL (6.4-8.2)
[2020-03-27 09:47] LABS: % BANDS 4 % (0-9); % BASOS 3 % (0-3); % EOS 5 % (0-5); % LYMPHS 2 % (24-48); % MONOS 3 % (0-10); % SEGS 83 % (35-66)
[2020-03-27 09:48] LABS: ANISOCYTOSIS SLIGHT; PLT ESTIMATE INCREASED (ADEQUATE)
== END ==
LOC: ONCLAB 08:18
PROVIDERS: ATTEND Internal Medicine Hematology & Oncology
DX: C34.32 Malignant neoplasm of lower lobe, left bronchus or lung (principal)
CPT/HCPCS: 36415; 80053; 85007; 85025

== ENCOUNTER → 2020-04-03 | Outpatient (CLI) | payer OTHER ==
[2020-03-22 11:45] VITALS: BP 114/65
[2020-04-03 08:32] LABS: BASO # 0.1 x10^3/uL (0.0-0.2); BASO % 1 % (0-3); EOS # 0.3 x10^3/uL (0.0-0.7); EOS % 3 % (0-3); HEMOGLOBIN 12.9 g/dL (13.0-17.5); LYMPH # 0.3 x10^3/uL (1.0-4.8); LYMPH % 3 % (24-48); MEAN CORPUSCULAR HEMOGLOBIN 29 pg (25-35); MEAN CORPUSCULAR HGB CONC 35 g/dL (31-37); MEAN CORPUSCULAR VOLUME 84 fL (79-100); MONO # 0.7 x10^3/uL (0.0-1.1); MONO % 8 % (0-9); NEUT # 7.3 x10^3/uL (1.8-7.7); NEUT % 84 % (31-73); PLATELET COUNT 381 x10^3/uL (140-400); RED BLOOD COUNT 4.42 x10^6/uL (4.30-5.70); RED CELL DISTRIBUTION WIDTH 13.2 % (11.5-14.5); WHITE BLOOD COUNT 8.6 x10^3/uL (4.0-11.0)
[2020-04-03 08:43] LABS: CALCIUM 9.7 mg/dL (8.5-10.1); CREATININE 0.7 mg/dL (0.7-1.3); POTASSIUM 4.2 mmol/L (3.5-5.1)
[2020-04-03 08:48] LABS: ALBUMIN 2.9 g/dL (3.4-5.0); ALBUMIN/GLOBULIN RATIO 0.6 (1.0-1.7); TOTAL BILIRUBIN 0.3 mg/dL (0.2-1.0); TOTAL PROTEIN 7.6 g/dL (6.4-8.2)
== END ==
LOC: ONCLAB 08:11
PROVIDERS: ATTEND Physician Assistant
DX: C34.32 Malignant neoplasm of lower lobe, left bronchus or lung (principal)
CPT/HCPCS: 36415; 80053; 85025

== ENCOUNTER → 2020-04-10 | Outpatient (CLI) | payer OTHER ==
[2020-03-22 11:45] VITALS: BP 114/65
[2020-04-10 09:58] LABS: BASO # 0.1 x10^3/uL (0.0-0.2); BASO % 1 % (0-3); EOS # 0.1 x10^3/uL (0.0-0.7); EOS % 2 % (0-3); HEMATOCRIT 35.9 % (39.0-53.0); HEMOGLOBIN 12.2 g/dL (13.0-17.5); LYMPH # 0.2 x10^3/uL (1.0-4.8); LYMPH % 3 % (24-48); MEAN CORPUSCULAR HEMOGLOBIN 29 pg (25-35); MEAN CORPUSCULAR HGB CONC 34 g/dL (31-37); MEAN CORPUSCULAR VOLUME 84 fL (79-100); MONO # 0.7 x10^3/uL (0.0-1.1); MONO % 9 % (0-9); NEUT # 6.5 x10^3/uL (1.8-7.7); NEUT % 86 % (31-73); PLATELET COUNT 370 x10^3/uL (140-400); RED BLOOD COUNT 4.27 x10^6/uL (4.30-5.70); RED CELL DISTRIBUTION WIDTH 13.8 % (11.5-14.5); WHITE BLOOD COUNT 7.5 x10^3/uL (4.0-11.0)
[2020-04-10 10:14] LABS: ALBUMIN 2.9 g/dL (3.4-5.0); ALBUMIN/GLOBULIN RATIO 0.7 (1.0-1.7); CALCIUM 9.6 mg/dL (8.5-10.1); CREATININE 0.7 mg/dL (0.7-1.3); TOTAL BILIRUBIN 0.4 mg/dL (0.2-1.0); TOTAL PROTEIN 7.3 g/dL (6.4-8.2)
[2020-04-10 10:34] LABS: POTASSIUM 4.1 mmol/L (3.5-5.1)
[2020-04-10 10:56] LABS: % BANDS 3 % (0-9); % LYMPHS 4 % (24-48); % MONOS 3 % (0-10); % SEGS 90 % (35-66); ANISOCYTOSIS SLIGHT; PLT ESTIMATE ADEQUATE (ADEQUATE)
== END ==
LOC: ONCLAB 09:19
PROVIDERS: ATTEND Internal Medicine Hematology & Oncology
DX: C34.32 Malignant neoplasm of lower lobe, left bronchus or lung (principal)
CPT/HCPCS: 36415; 80053; 85007; 85025

== ENCOUNTER → 2020-04-17 | Outpatient (CLI) | payer OTHER ==
[2020-03-22 11:45] VITALS: BP 114/65
[2020-04-17 10:16] LABS: BASO # 0.1 x10^3/uL (0.0-0.2); BASO % 1 % (0-3); EOS # 0.1 x10^3/uL (0.0-0.7); EOS % 2 % (0-3); HEMATOCRIT 35.2 % (39.0-53.0); HEMOGLOBIN 12.1 g/dL (13.0-17.5); LYMPH # 0.2 x10^3/uL (1.0-4.8); LYMPH % 3 % (24-48); MEAN CORPUSCULAR HEMOGLOBIN 29 pg (25-35); MEAN CORPUSCULAR HGB CONC 34 g/dL (31-37); MEAN CORPUSCULAR VOLUME 85 fL (79-100); MONO # 0.5 x10^3/uL (0.0-1.1); MONO % 9 % (0-9); NEUT # 5.1 x10^3/uL (1.8-7.7); NEUT % 85 % (31-73); PLATELET COUNT 317 x10^3/uL (140-400); RED BLOOD COUNT 4.17 x10^6/uL (4.30-5.70)
[2020-04-17 10:31] LABS: CALCIUM 9.2 mg/dL (8.5-10.1); CREATININE 0.7 mg/dL (0.7-1.3); POTASSIUM 3.9 mmol/L (3.5-5.1)
[2020-04-17 10:33] LABS: BARBITURATES NEG (NEG); BENZODIAZEPINES NEG (NEG); CANNABINOIDS NEG (NEG); COCAINE NEG (NEG); METHADONE NEG (NEG); OPIATES POS (NEG); PHENCYCLIDINE NEG (NEG)
[2020-04-17 10:35] LABS: ALBUMIN/GLOBULIN RATIO 0.7 (1.0-1.7); TOTAL BILIRUBIN 0.3 mg/dL (0.2-1.0); TOTAL PROTEIN 7.2 g/dL (6.4-8.2)
[2020-04-17 10:40] LABS: AMPHETAMINE/METHAMPHETAMINE NEG (NEG)
== END ==
LOC: ONCLAB 09:19
PROVIDERS: ATTEND Internal Medicine Hematology & Oncology
DX: C34.32 Malignant neoplasm of lower lobe, left bronchus or lung (principal); G89.3 Neoplasm related pain (acute) (chronic); Z79.891 Long term (current) use of opiate analgesic
CPT/HCPCS: 36415; 80053; 80307; 85025

== ENCOUNTER → 2020-04-24 | Outpatient (CLI) | payer OTHER ==
[2020-03-22 11:45] VITALS: BP 114/65
[~2020-04-24] MED LIST changes: -ENOX60DI SQ; -MIRT-7 PO; +MIRT15TA3 PO; -OXYC5TAB2 PO; -PANT40TA6 PO; -PRED20TA PO; -[UNRECOGNIZED DRUG - OTHER] PO
[2020-04-24 08:27] LABS: CALCIUM 9.7 mg/dL (8.5-10.1); CREATININE 0.6 mg/dL (0.7-1.3); GFR 137.4
[2020-04-24 08:32] LABS: ALBUMIN/GLOBULIN RATIO 0.7 (1.0-1.7); TOTAL BILIRUBIN 0.3 mg/dL (0.2-1.0); TOTAL PROTEIN 7.2 g/dL (6.4-8.2)
[2020-04-24 08:33] LABS: BASO % 1 % (0-3); EOS # 0.1 x10^3/uL (0.0-0.7); EOS % 2 % (0-3); HEMATOCRIT 36.1 % (39.0-53.0); HEMOGLOBIN 12.1 g/dL (13.0-17.5); LYMPH # 0.2 x10^3/uL (1.0-4.8); LYMPH % 3 % (24-48); MEAN CORPUSCULAR HEMOGLOBIN 29 pg (25-35); MEAN CORPUSCULAR HGB CONC 34 g/dL (31-37); MEAN CORPUSCULAR VOLUME 85 fL (79-100); MONO # 0.5 x10^3/uL (0.0-1.1); MONO % 9 % (0-9); NEUT % 86 % (31-73); PLATELET COUNT 276 x10^3/uL (140-400); RED BLOOD COUNT 4.26 x10^6/uL (4.30-5.70); RED CELL DISTRIBUTION WIDTH 14.8 % (11.5-14.5); WHITE BLOOD COUNT 5.8 x10^3/uL (4.0-11.0)
== END ==
LOC: ONCLAB 08:04
PROVIDERS: ATTEND Internal Medicine Hematology & Oncology
DX: C34.32 Malignant neoplasm of lower lobe, left bronchus or lung (principal)
CPT/HCPCS: 36415; 80053; 85025

== ENCOUNTER → 2020-05-02 | Outpatient (CLI) | payer OTHER ==
[2020-03-22 11:45] VITALS: BP 114/65
[2020-05-02 10:21] LABS: CALCIUM 9.1 mg/dL (8.5-10.1); CREATININE 0.7 mg/dL (0.7-1.3); POTASSIUM 4.2 mmol/L (3.5-5.1)
[2020-05-02 10:27] LABS: ALBUMIN/GLOBULIN RATIO 0.7 (1.0-1.7); TOTAL BILIRUBIN 0.4 mg/dL (0.2-1.0); TOTAL PROTEIN 7.3 g/dL (6.4-8.2)
[2020-05-02 10:30] LABS: BASO % 1 % (0-3); EOS # 0.1 x10^3/uL (0.0-0.7); EOS % 1 % (0-3); HEMATOCRIT 34.5 % (39.0-53.0); HEMOGLOBIN 11.5 g/dL (13.0-17.5); LYMPH # 0.1 x10^3/uL (1.0-4.8); LYMPH % 2 % (24-48); MEAN CORPUSCULAR HEMOGLOBIN 29 pg (25-35); MEAN CORPUSCULAR HGB CONC 34 g/dL (31-37); MEAN CORPUSCULAR VOLUME 85 fL (79-100); MONO # 0.4 x10^3/uL (0.0-1.1); MONO % 8 % (0-9); NEUT # 4.4 x10^3/uL (1.8-7.7); NEUT % 88 % (31-73); PLATELET COUNT 236 x10^3/uL (140-400); RED BLOOD COUNT 4.05 x10^6/uL (4.30-5.70); RED CELL DISTRIBUTION WIDTH 16.4 % (11.5-14.5)
[2020-05-02 13:02] LABS: % BANDS 6 % (0-9); % LYMPHS 3 % (24-48); % MONOS 4 % (0-10); % SEGS 87 % (35-66); PLT ESTIMATE ADEQUATE (ADEQUATE)
== END ==
LOC: ONCLAB 09:39
PROVIDERS: ATTEND Internal Medicine Hematology & Oncology
DX: C34.32 Malignant neoplasm of lower lobe, left bronchus or lung (principal)
CPT/HCPCS: 36415; 80053; 85007; 85025

== ENCOUNTER → 2020-05-09 | Outpatient (CLI) | payer OTHER ==
[2020-03-22 11:45] VITALS: BP 114/65
[2020-05-09 09:12] LABS: BASO % 1 % (0-3); EOS % 2 % (0-3); HEMATOCRIT 32.2 % (39.0-53.0); LYMPH # 0.1 x10^3/uL (1.0-4.8); LYMPH % 3 % (24-48); MEAN CORPUSCULAR HEMOGLOBIN 29 pg (25-35); MEAN CORPUSCULAR HGB CONC 34 g/dL (31-37); MEAN CORPUSCULAR VOLUME 86 fL (79-100); MONO # 0.4 x10^3/uL (0.0-1.1); MONO % 13 % (0-9); NEUT # 2.4 x10^3/uL (1.8-7.7); NEUT % 81 % (31-73); PLATELET COUNT 234 x10^3/uL (140-400); RED BLOOD COUNT 3.76 x10^6/uL (4.30-5.70); RED CELL DISTRIBUTION WIDTH 17.6 % (11.5-14.5); WHITE BLOOD COUNT 2.9 x10^3/uL (4.0-11.0)
[2020-05-09 09:27] LABS: CREATININE 0.7 mg/dL (0.7-1.3); POTASSIUM 3.8 mmol/L (3.5-5.1)
[2020-05-09 09:33] LABS: ALBUMIN/GLOBULIN RATIO 0.7 (1.0-1.7); TOTAL BILIRUBIN 0.4 mg/dL (0.2-1.0); TOTAL PROTEIN 7.1 g/dL (6.4-8.2)
== END ==
LOC: ONCLAB 08:08
PROVIDERS: ATTEND Physician Assistant
DX: C34.32 Malignant neoplasm of lower lobe, left bronchus or lung (principal)
CPT/HCPCS: 36415; 80053; 85025

== ENCOUNTER → 2020-05-25 | Outpatient (CLI) | payer OTHER ==
[2020-05-22 14:43] VITALS: BP 106/69
[~2020-05-25] MED LIST changes: +OXYC5TAB2 PO; +PANT40TA6 PO; +PRED20TA PO; +[UNRECOGNIZED DRUG - OTHER] PO
[2020-05-25 09:59] LABS: BASO % 0 % (0-3); EOS # 0.2 x10^3/uL (0.0-0.7); EOS % 2 % (0-3); HEMATOCRIT 35.2 % (39.0-53.0); HEMOGLOBIN 11.7 g/dL (13.0-17.5); LYMPH # 0.2 x10^3/uL (1.0-4.8); LYMPH % 2 % (24-48); MEAN CORPUSCULAR HEMOGLOBIN 29 pg (25-35); MEAN CORPUSCULAR HGB CONC 33 g/dL (31-37); MEAN CORPUSCULAR VOLUME 87 fL (79-100); MONO # 0.6 x10^3/uL (0.0-1.1); MONO % 6 % (0-9); NEUT # 9.3 x10^3/uL (1.8-7.7); NEUT % 90 % (31-73); PLATELET COUNT 357 x10^3/uL (140-400); RED BLOOD COUNT 4.04 x10^6/uL (4.30-5.70); RED CELL DISTRIBUTION WIDTH 20.1 % (11.5-14.5); WHITE BLOOD COUNT 10.3 x10^3/uL (4.0-11.0)
[2020-05-25 10:02] LABS: CALCIUM 8.9 mg/dL (8.5-10.1); CREATININE 0.6 mg/dL (0.7-1.3); GFR 137.4; POTASSIUM 4.1 mmol/L (3.5-5.1)
[2020-05-25 10:08] LABS: ALBUMIN 2.9 g/dL (3.4-5.0); ALBUMIN/GLOBULIN RATIO 0.8 (1.0-1.7); TOTAL BILIRUBIN 0.5 mg/dL (0.2-1.0); TOTAL PROTEIN 6.6 g/dL (6.4-8.2)
== END ==
LOC: ONCLAB 09:43
PROVIDERS: ATTEND Physician Assistant
DX: C34.32 Malignant neoplasm of lower lobe, left bronchus or lung (principal)
CPT/HCPCS: 36415; 80053; 85025

== ENCOUNTER → 2020-06-04 | Outpatient (CLI) | payer OTHER ==
[2020-05-22 14:43] VITALS: BP 106/69
[~2020-06-04] MED LIST changes: +ENOX60DI SQ
[2020-06-04 10:07] LABS: BASO # 0.1 x10^3/uL (0.0-0.2); BASO % 0 % (0-3); EOS # 0.1 x10^3/uL (0.0-0.7); EOS % 1 % (0-3); HEMATOCRIT 37.9 % (39.0-53.0); HEMOGLOBIN 12.5 g/dL (13.0-17.5); LYMPH # 0.2 x10^3/uL (1.0-4.8); LYMPH % 1 % (24-48); MEAN CORPUSCULAR HEMOGLOBIN 29 pg (25-35); MEAN CORPUSCULAR HGB CONC 33 g/dL (31-37); MEAN CORPUSCULAR VOLUME 89 fL (79-100); MONO # 0.7 x10^3/uL (0.0-1.1); MONO % 6 % (0-9); NEUT # 11.1 x10^3/uL (1.8-7.7); NEUT % 91 % (31-73); PLATELET COUNT 217 x10^3/uL (140-400); RED BLOOD COUNT 4.26 x10^6/uL (4.30-5.70); RED CELL DISTRIBUTION WIDTH 21.5 % (11.5-14.5); WHITE BLOOD COUNT 12.2 x10^3/uL (4.0-11.0)
[2020-06-04 10:14] LABS: CALCIUM 8.8 mg/dL (8.5-10.1); CREATININE 0.7 mg/dL (0.7-1.3); POTASSIUM 3.9 mmol/L (3.5-5.1)
[2020-06-04 10:19] LABS: ALBUMIN 2.8 g/dL (3.4-5.0); ALBUMIN/GLOBULIN RATIO 0.8 (1.0-1.7); TOTAL BILIRUBIN 0.5 mg/dL (0.2-1.0); TOTAL PROTEIN 6.3 g/dL (6.4-8.2)
[2020-06-04 13:01] LABS: % BANDS 5 % (0-9); % MONOS 7 % (0-10)
[2020-06-04 13:02] LABS: % LYMPHS 1 % (24-48); % SEGS 87 % (35-66); ANISOCYTOSIS MOD; PLT ESTIMATE ADEQUATE (ADEQUATE)
== END ==
LOC: ONCLAB 09:31
PROVIDERS: ATTEND Internal Medicine Hematology & Oncology
DX: C34.32 Malignant neoplasm of lower lobe, left bronchus or lung (principal)
CPT/HCPCS: 36415; 80053; 85007; 85025

== ENCOUNTER 2020-06-05 11:40 | Inpatient (IN) | payer OTHER ==
[~2020-06-05] VITALS: Ht 162.6 cm; Wt 59.9 kg
[~2020-06-05 11:40] MED LIST changes: -ENOX60DI SQ
[2020-06-05] MEDS ORDERED: EPINEPHrine SYRINGE 1 MG/10 ML SYRINGE ONE (12:00)
[2020-06-05 12:19] LABS: BASO % 0 % (0-3); EOS # 0.2 x10^3/uL (0.0-0.7); EOS % 1 % (0-3); HEMATOCRIT 39.5 % (39.0-53.0); LYMPH # 0.1 x10^3/uL (1.0-4.8); LYMPH % 1 % (24-48); MEAN CORPUSCULAR HEMOGLOBIN 29 pg (25-35); MEAN CORPUSCULAR HGB CONC 33 g/dL (31-37); MEAN CORPUSCULAR VOLUME 89 fL (79-100); MONO # 0.9 x10^3/uL (0.0-1.1); MONO % 6 % (0-9); NEUT # 12.7 x10^3/uL (1.8-7.7); NEUT % 91 % (31-73); PLATELET COUNT 219 x10^3/uL (140-400); RED BLOOD COUNT 4.45 x10^6/uL (4.30-5.70); RED CELL DISTRIBUTION WIDTH 21.8 % (11.5-14.5); WHITE BLOOD COUNT 13.9 x10^3/uL (4.0-11.0)
[2020-06-05] MEDS ORDERED: IV NORMAL SALINE 1000ML BAG 1,000 ML IV ONE ×2 (12:30→14:00)
[2020-06-05 12:32] LABS: CREATININE 0.5 mg/dL (0.7-1.3); GFR 169.6; POTASSIUM 3.8 mmol/L (3.5-5.1)
[2020-06-05 12:38] LABS: ALBUMIN 2.8 g/dL (3.4-5.0); ALBUMIN/GLOBULIN RATIO 0.8 (1.0-1.7); MAGNESIUM 1.7 mg/dL (1.8-2.4); TOTAL BILIRUBIN 0.5 mg/dL (0.2-1.0); TOTAL PROTEIN 6.5 g/dL (6.4-8.2)
[2020-06-05 12:51] LABS: % BANDS 4 % (0-9); % LYMPHS 1 % (24-48); % MONOS 4 % (0-10); % SEGS 91 % (35-66)
[2020-06-05 12:52] LABS: ANISOCYTOSIS SLIGHT; PLT ESTIMATE ADEQUATE (ADEQUATE)
[2020-06-05 12:52] LABS: BILIRUBIN,URINE NEGATIVE (NEG); CLARITY,URINE CLEAR; COLOR,URINE YELLOW; NITRITE,URINE NEGATIVE (NEG); PROTEIN,URINE NEGATIVE (NEG-TRACE)
--- NOTE | 2020-06-05 12:53 | RAD ---
XR CHEST 1V History: Reason: soa, rapid heart rate, hx of lung CA / Spl. Instructions: / History: Comparison: CT chest 05/21/2020. Chest x-ray 05/19/2020 Technique: AP radiograph of the chest. Findings: There is a right chest Mediport with catheter tip projecting at the lower SVC. Lucency of the upper lungs consistent with emphysematous change. Diffuse coarse interstitial markings and likely superimposed lower lobe consolidations or masses. No significant pleural effusion. No pne umothorax. Cardiomediastinal silhouette and pulmonary vasculature are within normal limits. Osseous s tructures and soft tissues are unremarkable. Impression: 1. Enhanced interstitial disease which may represent fibrosis and/or lymphangitic metastatic disease . Superimposed infection cannot be excluded. Electronically signed by: Ruben Vela MD (06/05/2020 12:51 PM) [facility]
[2020-06-05] MEDS ORDERED: MAGNESIUM SULFATE 2GM 50 ML IV ONE (13:00)
[2020-06-05 13:03] LABS: HYALINE CASTS, URINE FEW /HPF
[2020-06-05 13:05] LABS: RBC,URINE 0 /HPF (0-2)
[2020-06-05 13:06] LABS: AMORPHOUS SEDIMENT,UR PRESENT /HPF; BACTERIA,URINE FEW /HPF (0-FEW)
--- NOTE | 2020-06-05 13:49 | PHYS DOC ---
Past Medical History Past Medical History: Cancer, Diabetes-Type II, Diverticulitis, Gallstones Additional Past Medical Histor: LEFT LUNG MASS, LLL BIOPSY Past Surgical History: Cholecystectomy, Other Additional Past Surgical Histo: HERNIA SX, BOWEL RESECTION Smoking Status: Former Smoker Alcohol Use: None Drug Use: None General Adult EDM: Chief Complaint: RAPID HEART RATE HPI: HPI: Patient is a 59 year old male who was sent here from his oncology clinic due to a rapid heart rate. Patient denies any chest pain, no fever. Patient had a nonproductive cough. Patient said he had some abnormal heart rhythm in the past, he is on Cardizem and digoxin. Patient said he has been taking his medication as directed. Patient denies any history of COVID-19 infection or been exposed to anybody with coronavirus. Patient had not have his Covid vaccine yet. Review of Systems: Review of Systems: Constitutional: Denies fever or chills. [] Eyes: Denies change in visual acuity. [] HENT: Denies nasal congestion or sore throat. [] Respiratory: Denies cough or shortness of breath. [] Cardiovascular: Denies chest pain or edema. Positive for heart palpitation. GI: Denies abdominal pain, nausea, vomiting, bloody stools or diarrhea. [] : Denies dysuria. [] Musculoskeletal: Denies back pain or joint pain. [] Integument: Denies rash. [] Neurologic: Denies headache, focal weakness or sensory changes. [] Endocrine: Denies polyuria or polydipsia. [] Lymphatic: Denies swollen glands. [] Psychiatric: Denies depression or anxiety. [] Heart Score: C/O Chest Pain: N/A Risk Factors: Risk Factors: DM, Current or recent (<one month) smoker, HTN, HLP, family history of CAD, obesity. Risk Scores: Score 0 - 3: 2.5% MACE over next 6 weeks - Discharge Home Score 4 - 6: 20.3% MACE over next 6 weeks - Admit for Clinical Observation Score 7 - 10: 72.7% MACE over next 6 weeks - Early Invasive Strategies Current Medications: Current Medications Medications (Trade) Dose Ordered Sig/Autumn Start Time Stop Time Status Last Admin Dose Admin Magnesium Sulfate 50 ml @ 25 mls/hr 1X ONCE 06/05/20 13:00 06/05/20 14:59 06/05/20 13:33 25 MLS/HR Sodium Chloride 1,000 ml @ 1,000 mls/hr 1X ONCE 06/05/20 12:30 06/05/20 13:29 DC 06/05/20 12:25 1,000 MLS/HR Allergies: Allergies: Allergies Coded Allergies Type Severity Reaction Last Updated Verified levofloxacin Allergy Intermediate HIVES 06/09/18 Yes Iodine and Iodide Containing Produc Adverse Reaction Mild N/V 06/09/18 Yes Physical Exam: PE: Constitutional: Well developed, well nourished, no acute distress, non-toxic appearance. [] HENT: Normocephalic, atraumatic, bilateral external ears normal, oropharynx moist, no oral exudates, nose normal. [] Eyes: PERRLA, EOMI, conjunctiva normal, no discharge. [] Neck: Normal range of motion, no tenderness, supple, no stridor. [] Cardiovascular: RAPID Heart rate, regular rhythm, no murmur [] Lungs & Thorax: Bilateral breath sounds clear to auscultation [] Abdomen: Bowel sounds normal, soft, no tenderness, no masses, no pulsatile masses. [] Skin: Warm, dry, no erythema, no rash. [] Back: No tenderness, no CVA tenderness. [] Extremities: No tenderness, no cyanosis, no clubbing, ROM intact, no edema. [] Neurologic: Alert and oriented X 3, normal motor function, normal sensory function, no focal deficits noted. [] Psychologic: Affect normal, judgement normal, mood normal. [] Current Patient Data: Labs: Laboratory Tests Test 06/05/20 12:00 06/05/20 12:43 White Blood Count 13.9 x10^3/uL (4.0-11.0) H Red Blood Count 4.45 x10^6/uL (4.30-5.70) Hemoglobin 13.0 g/dL (13.0-17.5) Hematocrit 39.5 % (39.0-53.0) Mean Corpuscular Volume 89 fL (79-100) Mean Corpuscular Hemoglobin 29 pg (25-35) Mean Corpuscular Hemoglobin Concent 33 g/dL (31-37) Red Cell Distribution Width 21.8 % (11.5-14.5) H Platelet Count 219 x10^3/uL (140-400) Neutrophils (%) (Auto) 91 % (31-73) H Lymphocytes (%) (Auto) 1 % (24-48) L Monocytes (%) (Auto) 6 % (0-9) Eosinophils (%) (Auto) 1 % (0-3) Basophils (%) (Auto) 0 % (0-3) Neutrophils # (Auto) 12.7 x10^3/uL (1.8-7.7) H Lymphocytes # (Auto) 0.1 x10^3/uL (1.0-4.8) L Monocytes # (Auto) 0.9 x10^3/uL (0.0-1.1) Eosinophils # (Auto) 0.2 x10^3/uL (0.0-0.7) Basophils # (Auto) 0.0 x10^3/uL (0.0-0.2) Segmented Neutrophils % 91 % (35-66) H Band Neutrophils % 4 % (0-9) Lymphocytes % 1 % (24-48) L Monocytes % 4 % (0-10) Platelet Estimate Adequate (ADEQUATE) Anisocytosis Slight Sodium Level 135 mmol/L (136-145) L Potassium Level 3.8 mmol/L (3.5-5.1) Chloride Level 101 mmol/L (98-107) Carbon Dioxide Level 24 mmol/L (21-32) Anion Gap 10 (6-14) Blood Urea Nitrogen 21 mg/dL (8-26) Creatinine 0.5 mg/dL (0.7-1.3) L Estimated GFR (Cockcroft-Gault) 169.6 BUN/Creatinine Ratio 42 (6-20) H Glucose Level 191 mg/dL (70-99) H Calcium Level 9.0 mg/dL (8.5-10.1) Magnesium Level 1.7 mg/dL (1.8-2.4) L Total Bilirubin 0.5 mg/dL (0.2-1.0) Aspartate Amino Transferase (AST) 16 U/L (15-37) Alanine Aminotransferase (ALT) 24 U/L (16-63) Alkaline Phosphatase 137 U/L (46-116) H Troponin I Quantitative < 0.017 ng/mL (0.000-0.055) OE-Ecv-D-Type Natriuretic Peptide 313 pg/mL (0-124) H Total Protein 6.5 g/dL (6.4-8.2) Albumin 2.8 g/dL (3.4-5.0) L Albumin/Globulin Ratio 0.8 (1.0-1.7) L Lipase 33 U/L (73-393) L Urine Collection Type Void Urine Color Yellow Urine Clarity Clear Urine pH 6.0 (<5.0-8.0) Urine Specific [place] >=1.030 (1.000-1.030) Urine Protein Negative mg/dL (NEG-TRACE) Urine Glucose (UA) Negative mg/dL (NEG) Urine Ketones (Stick) Trace mg/dL (NEG) Urine Blood Negative (NEG) Urine Nitrite Negative (NEG) Urine Bilirubin Negative (NEG) Urine Urobilinogen Dipstick 1.0 mg/dL (0.2 mg/dL) Urine Leukocyte Esterase Negative (NEG) Urine RBC 0 /HPF (0-2) Urine WBC 1-4 /HPF (0-4) Urine Squamous Epithelial Cells Few /LPF Urine Amorphous Sediment Present /HPF Urine Bacteria Few /HPF (0-FEW) Urine Hyaline Casts Few /HPF Urine Mucus Marked /LPF Laboratory Tests 06/05/20 12:00 Laboratory Tests 06/05/20 12:00 Vital Signs: Vital Signs Date Time Temp Pulse Resp B/P (MAP) Pulse Ox O2 Delivery O2 Flow Rate FiO2 06/05/20 11:50 98.1 143 30 125/67 (86) 86 Nasal Cannula 6.0 98.1 EKG: EKG: EKG was done at 1156, heart rate 135 bpm, sinus tachycardia, no ST segment elevation. Radiology/Procedures: Radiology/Procedures: [][facility] [address] [place] [address] IMAGING REPORT Signed PATIENT[id number] : 1960 LOCATION: ER AGE: 59 SEX: M EXAM STATUS: REG ER ORD. PHYSICIAN: FIDELIA MCCLELLAN DO REASON: soa, rapid heart rate, hx of lung CA PROCEDURE: CHEST AP ONLY XR CHEST 1V History: Reason: soa, rapid heart rate, hx of lung CA / Spl. Instructions: / History: Comparison: CT chest 05/21/2020. Chest x-ray 05/19/2020 Technique: AP radiograph of the chest. Findings: There is a right chest Mediport with catheter tip projecting at the lower SVC. Lucency of the upper lungs consistent with emphysematous change. Diffuse coarse interstitial markings and likely superimposed lower lobe consolidations or masses. No significant pleural effusion. No pneumothorax. Cardiomediastinal silhouette and pulmonary vasculature are within normal limits. Osseous structures and soft tissues are unremarkable. Impression: 1. Enhanced interstitial disease which may represent fibrosis and/or lymphangitic metastatic disease. Superimposed infection cannot be excluded. Electronically signed by: Ruben Escalera MD (06/05/2020 12:51 PM) [facility] DICTATED and SIGNED BY: RUBEN ESCALERA MD DATE: 06/05/20 [id number] Course & Med Decision Making: Course & Med Decision Making Pertinent Labs and Imaging studies reviewed. (See chart for details) Patient is a 59-year-old male with a history of pulmonary fibrosis, lung cancer presented to ER due to heart palpitation. Patient was found to be dehydrated, patient was given 2 L normal saline IV bolus, his heart rate slowed down to 125 Bpm. Patient was given 5 mg of Lopressor IV, his right heart rate slowed down to 110 beat per minute. Patient be admitted for observation, discussed with his family doctor Dr. Banks who agreed to admit the patient. [place]a Disclaimer: Smitha Disclaimer: This electronic medical record was generated, in whole or in part, using a voice recognition dictation system. Departure Departure Impression: Primary Impression: Heart palpitations Additional Impression: Dehydration Disposition: ADMITTED INPT THIS HOSP Admitting Physician: Bibiana Banks Condition: IMPROVED Referrals: BIBIANA BANKS MD (PCP) FIDELIA MCCLELLAN DO Jun 05, 2020 13:49
[2020-06-05] MEDS ORDERED: METOPROLOL IV PUSH 5 MG/5 ML VIAL. IVP ONE ×2 (14:30→19:45)
[2020-06-05 14:40] LABS: DIG 0.4 ng/mL (0.9-2.0)
--- NOTE | 2020-06-05 15:27 | EKG ---
[facility] [address] [place] [address] Test Date: 2020-06-05 Test Time: 11:56:51 Pat Name: GODFREY MCWILLIAMS Department: Room: Gender: M Restaurant Worker: : 1960 Requested By: FIDELIA MCCLELLAN Order Number: [id number] Reading MD: Measurements Intervals Burns Rate: 135 P: 233 IL: 118 QRS: 16 QRSD: 96 T: 79 QT: 312 QTc: 473 Interpretive Statements SUPRAVENTRICULAR TACHYCARDIA LVH WITH REPOLARIZATION ABNORMALITY ABNORMAL ECG RI6.02 No previous ECG available for comparison
[2020-06-05] MEDS ORDERED: DIGOXIN IV 500 MCG/2 ML AMPUL. IV ONE (15:30)
[2020-06-05] MEDS ORDERED: ONDANSETRON PF 4 MG/2 ML VIAL. IV PRN (16:15)
[2020-06-05] MEDS ORDERED: IV NORMAL SALINE 1000ML BAG 1,000 ML IV SCH (16:15)
[2020-06-05] MEDS ORDERED: IPRATRPIUM/ALBUTEROL 0.5/2.5MG 3 ML NEBU. NEB ONE (16:30)
[2020-06-05] MEDS ORDERED: IPRATROPIUM/ALBUTEROL 20/100mcg/INH INHALER. INH SCH (17:00)
[2020-06-05 18:18] LABS: BASE EXCESS ABG -7 mmol/L (-3-3); HCO3 ABG 17 mmol/L (21-28); PCO2 ABG 29 mmHg (35-46); SAT O2 ABG 80 % (92-99)
[2020-06-05 18:19] LABS: PO2 ABG 47 mmHg (65-108)
[2020-06-05] MEDS ORDERED: STERILE WATER for RESP 1,000 ML BAG. INH PRN (18:30)
[2020-06-05] MEDS ORDERED: ACETAMINOPHEN 325 MG TABLET. PO ONE (19:00)
[2020-06-05 21:00] VITALS: BP 147/73
[2020-06-05 21:15] VITALS: BP 122/72
[2020-06-05] MEDS ORDERED: ENOX60DI SQ (21:26)
[2020-06-05 21:30] VITALS: BP 140/95
[2020-06-05 21:45] VITALS: BP 140/80
[2020-06-05] MEDS ORDERED: HEPARIN for IV BOLUS 10,000 UNIT/10 ML VIAL. IV ONE (21:45)
[2020-06-05] MEDS ORDERED: HEPARIN for IV BOLUS 10,000 UNIT/10 ML VIAL. IV PRN ×2 (21:45)
[2020-06-05] MEDS ORDERED: HEPARIN 25,000UTS/250ML PREMIX 250 ML IV PRN (21:45)
[2020-06-05] MEDS: MORPHINE SULFATE 2 MG/ML VIAL. IV PRN ×2 (21:55→23:21)
[2020-06-05 22:00] VITALS: BP 152/86
[2020-06-05 23:00] VITALS: BP 75/58
--- NOTE | 2020-06-06 08:48 | HP ---
ADMIT DATE: 06/05/2020 ADMISSION HISTORY AND PHYSICAL CHIEF COMPLAINT AND HISTORY OF PRESENT ILLNESS: This 59-year-old male with lung cancer, presented from the Oncology Clinic after being found there to be with a rapid heart rate. He also had a history of atrial fibrillation in the past and was taken off of blood thinners because of hemoptysis. He was found to be in acute respiratory failure in the Emergency Room with tachycardia and chest x-ray findings consistent with worsening interstitial infiltrates versus lymphangitic metastatic spread of his lung cancer; admitted to the ICU, where the patient chose to be a do not resuscitate. PAST MEDICAL HISTORY: Remarkable for lung cancer, diabetes, diverticulosis, diverticulitis, gallstones, lung cancer. PAST SURGICAL HISTORY: He had had prior cholecystectomy, hernia surgery, small bowel resection. MEDICATIONS: Brought with the patient, listed on the computer and have been addressed. ALLERGIES: HE WAS ALLERGIC TO IODINE AND LEVAQUIN. SOCIAL HISTORY: Reformed smoker, nondrinker, did not abuse drugs. Lived at home with longtime partner. FAMILY HISTORY: Noncontributory. REVIEW OF SYSTEMS: As noted in the Emergency Room visit. PHYSICAL EXAMINATION: I did not examine the patient as he prior to my dictation of this, but was on the phone multiple times for the same. IMPRESSION: 1. Acute hypoxic respiratory failure with tachycardia, suspicious for pulmonary embolism with a degree of hypoxia and tachycardia. 2. Lung cancer. PLAN: ICU admission with DNR, supportive care. HE WAS ALLERGIC TO IODINE. So, CTA of the chest cannot be obtained, so V/Q scan will be done following day, although he before the same. He was started on a heparin drip with the thoughts that this could be a pulmonary embolism, but again, prior to identification of the same. BIBIANA LEWIS MD DR: JAMIA/deven JOB#: [id number] / [id number]
--- NOTE | 2020-06-06 11:08 | DS ---
DATE OF DISCHARGE: 06/06/2020 DISCHARGE/ SUMMARY PRIMARY DIAGNOSES: 1. Acute hypoxic respiratory failure with tachyarrhythmias of uncertain etiology, but suspected pulmonary embolism. 2. Lung cancer. 3. Chronic obstructive pulmonary disease. 4. Diabetes. CHIEF COMPLAINT AND HISTORY OF PRESENT ILLNESS: This 59-year-old white male is sent from Oncology Clinic because of tachycardia to the ER where he was found to be in acute hypoxic respiratory failure with interstitial infiltrates consistent with pneumonia versus metastatic spread of his cancer and was admitted to the ICU. SUMMARY OF STAY: The patient was admitted and was a DNR. He was supported. Unable to do a CTA of the chest due to IODINE allergy. I started him on heparin empirically for possible PE and he was supported with oxygen, etc. and early childhood coordinator hours of the 04/08/2020. DISPOSITION: The patient's body was transferred to the home. We will be available to comfort the family as we can. BIBIANA LEWIS MD DR: JAMIA/deven JOB#: [id number] / [id number]
== END 2020-06-06 | DRG 180 ==
LOC: ER 11:40 → 6 SOUTH 15:51 → OBSVTOIN 15:51 → 1 WEST ICU 20:13
PROVIDERS: ADMIT Family Medicine; ATTEND Family Medicine
DX: C34.90 Malignant neoplasm of unspecified part of unspecified bronchus or lung (principal); J96.01 Acute respiratory failure with hypoxia; I26.99 Other pulmonary embolism without acute cor pulmonale; K57.92 Diverticulitis of intestine, part unspecified, without perforation or abscess without bleeding; Z20.822 Contact with and (suspected) exposure to COVID-19; J44.9 Chronic obstructive pulmonary disease, unspecified; E11.9 Type 2 diabetes mellitus without complications; Z66 Do not resuscitate; Z91.041 Radiographic dye allergy status; Z88.8 Allergy status to other drugs, medicaments and biological substances; Z85.118 Personal history of other malignant neoplasm of bronchus and lung; K80.20 Calculus of gallbladder without cholecystitis without obstruction; I48.91 Unspecified atrial fibrillation; Z90.49 Acquired absence of other specified parts of digestive tract; Z87.891 Personal history of nicotine dependence
CPT/HCPCS: 36415; 36600; 71045; 80053; 80162; 81001; 82805; 83605; 83690; 83735; 83880; 84484; 85007; 85025; 87040; 93005; 96361; 96365; 96366; 96375; 99285; J0171; J1160; J1644; J2060; J2270; J3475; J3490; J7030; U0003; G0378